=== PATIENT | male | born 1940 | race Caucasian/White ===

== ENCOUNTER → 2016-04-01 | Outpatient (CLI) | payer MEDICARE, OTHER ==
[2016-04-01 15:49] LABS: Albumin 4.1 g/dL (3.4-5.0); BUN/Creatinine Ratio 18.1; Bilirubin, Total 0.3 mg/dL (0.2-1.0); Calcium 9.1 mg/dL (8.5-10.1); Potassium 4.1 mmol/L (3.5-5.1); Total Protein 6.7 g/dL (6.4-8.2)
== END | disposition home or self-care (01) ==
LOC: LAB 10:10
PROVIDERS: ATTEND Internal Medicine Cardiovascular Disease
DX: I10 Essential (primary) hypertension (principal); R97.20 Elevated prostate specific antigen [PSA]
CPT/HCPCS: 36415; 80053; 84153

== ENCOUNTER → 2017-05-01 | Outpatient (CLI) | payer MEDICARE ==
[2017-05-01 12:15] LABS: Calcium 9.3 mg/dL (8.5-10.1); Potassium 3.9 mmol/L (3.5-5.1)
== END | disposition home or self-care (01) ==
LOC: LAB 09:16
PROVIDERS: ATTEND Internal Medicine Cardiovascular Disease
DX: C61 Malignant neoplasm of prostate (principal); I10 Essential (primary) hypertension
CPT/HCPCS: 36415; 80048; 84153

== ENCOUNTER → 2017-10-13 | Outpatient (CLI) | payer MEDICARE ==
[2017-10-13 12:07] LABS: Urine Blood Negative /uL (Negative); Urine Specific Gravity 1.018 (1.001-1.035)
== END | disposition home or self-care (01) ==
LOC: LAB 10:41
PROVIDERS: ATTEND Internal Medicine Cardiovascular Disease
DX: N39.0 Urinary tract infection, site not specified (principal)
CPT/HCPCS: 81003; 87086

== ENCOUNTER → 2018-09-23 | Outpatient (CLI) | payer MEDICARE ==
[2018-09-23 12:03] LABS: Urine Blood Negative /uL (Negative); Urine Specific Gravity 1.018 (1.001-1.035)
[2018-09-23 12:08] LABS: Basophils # (auto) 0.1 uL; Basophils % (auto) 1.7 % (0.0-2.0); Eosinophils # (auto) 0.2 uL; Eosinophils % (auto) 2.9 % (0.0-7.0); Hematocrit 45.8 % (41.0-53.0); Hemoglobin 15.3 g/dL (13.5-17.5); Lymphocytes # (auto) 1.1 uL; Lymphocytes % (auto) 17.3 % (10.0-50.0); Mean Corpuscular Hemoglobin 32.4 pg (28.0-32.0); Mean Corpuscular Hgb Conc. 33.5 g/dL (32.0-36.0); Mean Corpuscular Volume 96.9 fL (80.0-100.0); Monocytes # (auto) 0.7 uL; Neutrophils # (auto) 4.3 uL; Neutrophils % (auto) 67.1 % (37.0-80.0); Nucleated Red Blood Cells % 0.1 %; Platelet Count (auto) 220 10^3/uL (140-450); Red Blood Cells 4.73 10^6/uL (4.5-5.90); Red Cell Distribution Width 13.5 % (11.8-14.3); White Blood Cell 6.5 10^3/uL (4.4-10.8)
[2018-09-23 12:15] LABS: Albumin 3.9 g/dL (3.4-5.0); Potassium 4.2 mmol/L (3.5-5.1)
[2018-09-23 12:24] LABS: BUN/Creatinine Ratio 17.1; Bilirubin, Total 0.5 mg/dL (0.2-1.0)
[2018-09-23 12:25] LABS: Free T4 (Free Thyroxine) 1.18 ng/dL (0.89-1.76)
[2018-09-23 12:26] LABS: Prostate Specific Antigen 0.7 ng/mL (0.0-4.0)
== END | disposition home or self-care (01) ==
LOC: CHF HDHVI 08:03
PROVIDERS: ATTEND Internal Medicine Cardiovascular Disease
DX: E03.9 Hypothyroidism, unspecified (principal); C61 Malignant neoplasm of prostate; E29.1 Testicular hypofunction; K90.9 Intestinal malabsorption, unspecified; D51.9 Vitamin B12 deficiency anemia, unspecified; Z79.899 Other long term (current) drug therapy
CPT/HCPCS: 36415; 80053; 80061; 81003; 82306; 83036; 84153; 84403; 84439; 84443; 85025

== ENCOUNTER → 2018-11-24 | Outpatient (CLI) | payer MEDICARE ==
[2018-11-24 12:27] LABS: Urine Blood Negative /uL (Negative); Urine Specific Gravity 1.016 (1.001-1.035)
[2018-11-24 12:31] LABS: Basophils # (auto) 0.1 uL; Basophils % (auto) 1.5 % (0.0-2.0); Eosinophils # (auto) 0.5 uL; Eosinophils % (auto) 6.8 % (0.0-7.0); Hematocrit 43.6 % (41.0-53.0); Hemoglobin 14.8 g/dL (13.5-17.5); Lymphocytes # (auto) 1.6 uL; Mean Corpuscular Hemoglobin 32.9 pg (28.0-32.0); Mean Corpuscular Hgb Conc. 33.9 g/dL (32.0-36.0); Mean Corpuscular Volume 96.9 fL (80.0-100.0); Monocytes # (auto) 0.7 uL; Monocytes % (auto) 9.4 % (0.0-12.0); Neutrophils # (auto) 4.1 uL; Neutrophils % (auto) 59.3 % (37.0-80.0); Nucleated Red Blood Cells % 0.2 %; Platelet Count (auto) 233 10^3/uL (140-450); Red Cell Distribution Width 13.5 % (11.8-14.3); White Blood Cell 6.9 10^3/uL (4.4-10.8)
[2018-11-24 12:33] LABS: Albumin 3.8 g/dL (3.4-5.0)
[2018-11-24 12:37] LABS: Total Protein 7.2 g/dL (6.4-8.2)
[2018-11-24 12:38] LABS: Free T4 (Free Thyroxine) 1.27 ng/dL (0.89-1.76); Prostate Specific Antigen 0.21 ng/mL (0.0-4.0)
[2018-11-24 12:47] LABS: BUN/Creatinine Ratio 18.8; Bilirubin, Total 0.4 mg/dL (0.2-1.0); Calcium 8.8 mg/dL (8.5-10.1)
== END | disposition home or self-care (01) ==
LOC: LAB 08:52
PROVIDERS: ATTEND Internal Medicine
DX: E03.9 Hypothyroidism, unspecified (principal); K90.9 Intestinal malabsorption, unspecified; C61 Malignant neoplasm of prostate; E29.1 Testicular hypofunction; N39.0 Urinary tract infection, site not specified; D51.9 Vitamin B12 deficiency anemia, unspecified; Z79.899 Other long term (current) drug therapy
CPT/HCPCS: 36415; 80053; 80061; 81003; 82306; 82607; 83036; 84153; 84403; 84439; 84443; 85025

== ENCOUNTER → 2019-01-31 | Outpatient (CLI) | payer MEDICARE ==
[2019-01-31 10:56] VITALS: BP 149/76
[2019-01-31 11:09] VITALS: BP 153/76
--- NOTE | 2019-01-31 11:09 | NUR ---
[facility] Discharge Instructions See e-MAR for any mediations given with this visit. Patient education given on disease process. Patient verbalized understanding. Previous labs reviewed. Patient discharged in stable condition with after care instructions and follow up appointment. NOTE 4 RASHARD REMOVED, CLEANED WITH ANTISEPTIC SWAP. DRESSING CHANGED ON LEFT ARM SKIN TEAR.
== END | disposition home or self-care (01) ==
LOC: CHF HDHVI 11:05
PROVIDERS: ATTEND Internal Medicine Cardiovascular Disease
DX: S41.112A Laceration without foreign body of left upper arm, initial encounter (principal); S09.8XXA Other specified injuries of head, initial encounter; W19.XXXA Unspecified fall, initial encounter; Y93.89 Activity, other specified; Y92.89 Other specified places as the place of occurrence of the external cause; Y99.8 Other external cause status
CPT/HCPCS: G0463

== ENCOUNTER → 2019-03-01 | Outpatient (CLI) | payer MEDICARE | END | disposition home or self-care (01) | LOC: LAB 09:58 | PROVIDERS: ATTEND Internal Medicine | DX: E03.9 Hypothyroidism, unspecified (principal) | CPT/HCPCS: 36415; 84443 ==

== ENCOUNTER → 2019-03-30 | Outpatient (CLI) | payer MEDICARE | END | disposition home or self-care (01) | LOC: Rad HDHVI 12:50 | PROVIDERS: ATTEND Internal Medicine Cardiovascular Disease | DX: M79.89 Other specified soft tissue disorders (principal) | CPT/HCPCS: 93970 ==

== ENCOUNTER → 2019-04-08 | Outpatient (CLI) | payer MEDICARE | END | disposition home or self-care (01) | LOC: Rad HDHVI 14:47 | PROVIDERS: ATTEND Internal Medicine Cardiovascular Disease | DX: I07.1 Rheumatic tricuspid insufficiency (principal); R53.1 Weakness; I10 Essential (primary) hypertension; R07.9 Chest pain, unspecified | CPT/HCPCS: 93306 ==

== ENCOUNTER → 2019-04-20 | Outpatient (CLI) | payer MEDICARE ==
[~2019-04-20] VITALS: Ht 175.3 cm; Wt 79.8 kg
[~2019-04-20] MED LIST: ADENOSINE 67 MG in GIVE UN-DILUTED 0 ML IV ONE; ADENOSINE 90 MG/30 ML INJ IV ONE
[2019-04-20 12:17] LABS: Potassium 4.2 mmol/L (3.5-5.1)
[2019-04-20 12:21] LABS: Magnesium 2.6 mg/dL (1.6-2.6)
== END | disposition home or self-care (01) ==
LOC: Rad HDHVI 09:03
PROVIDERS: ATTEND Internal Medicine Cardiovascular Disease
DX: R00.2 Palpitations (principal); I10 Essential (primary) hypertension
CPT/HCPCS: 36415; 78452; 83735; 84132; 93005; 96374; 96375; A9500; J0153

== ENCOUNTER → 2019-06-28 | Outpatient (CLI) | payer MEDICARE, OTHER ==
[~2019-06-28] MED LIST changes: -ADENOSINE 67 MG in GIVE UN-DILUTED 0 ML IV ONE; -ADENOSINE 90 MG/30 ML INJ IV ONE; +IOHEXOL 350 MG/ML 100ML IJ ONE
--- NOTE | 2019-06-28 09:10 | NUR ---
PT. TO CLINIC FOR CTA OF LOWER EXT. PER DR. DURAN. WITH PT. DUE TO INSTABILITY WITH PT. USING WALKER. ORDERS RECEIVED AND CARRIED OUT.
[2019-06-28 09:15] VITALS: BP 156/75
--- NOTE | 2019-06-28 09:32 | NUR ---
IV insertion IV access obtained, via clean sterile technique by inserting 20 gauge catheter at after attempt(s). IV secured properly. No trauma to site. Patient tolerated procedure well. STAT LABS SENT PER MD ORDER.
--- NOTE | 2019-06-28 10:18 | NUR ---
IV removal IV DC'd with sterile technique, catheter fully intact. Pressure dressing applied to site. Patient tolerated procedure well.
[2019-06-28 10:38] LABS: Basophils # (auto) 0.1 10 ^3/uL (0-0.2); Basophils % (auto) 1.3 % (0.0-2.0); Eosinophils # (auto) 0.2 10 ^3/uL (0-0.8); Eosinophils % (auto) 4.7 % (0.0-7.0); Hematocrit 38.8 % (41.0-53.0); Hemoglobin 13.1 g/dL (13.5-17.5); Lymphocytes # (auto) 1.1 10 ^3/uL (0.4-5.4); Lymphocytes % (auto) 21.3 % (10.0-50.0); Mean Corpuscular Hemoglobin 31.7 pg (28.0-32.0); Mean Corpuscular Hgb Conc. 33.7 g/dL (32.0-36.0); Mean Corpuscular Volume 94.1 fL (80.0-100.0); Monocytes # (auto) 0.5 10 ^3/uL (0-1.3); Monocytes % (auto) 10.6 % (0.0-12.0); Neutrophils # (auto) 3.2 10 ^3/uL (1.6-8.6); Neutrophils % (auto) 62.1 % (37.0-80.0); Platelet Count (auto) 189 10^3/uL (140-450); Red Blood Cells 4.12 10^6/uL (4.5-5.90); Red Cell Distribution Width 13.4 % (11.8-14.3); White Blood Cell 5.1 10^3/uL (4.4-10.8)
[2019-06-28 10:46] LABS: Potassium 3.5 mmol/L (3.5-5.1)
[2019-06-28 10:50] LABS: BUN/Creatinine Ratio 16.9; Bilirubin, Total 0.4 mg/dL (0.2-1.0); Total Protein 7.3 g/dL (6.4-8.2)
--- NOTE | 2019-06-28 10:50 | NUR ---
STAT CREAT RESULTS 0.83
[2019-06-28 11:20] VITALS: BP 137/77
--- NOTE | 2019-06-28 11:20 | NUR ---
Discharge Instructions See e-MAR for any mediations given with this visit. Patient education given on disease process. Patient verbalized understanding. Previous labs reviewed. Patient discharged in stable condition with after care instructions and follow up appointment. NOTE PATIENT EDUCATED TO DRINK PLENTY OF FLUID FOLLOWING IV CONTRAST, PATIENT VERBALIZED UNDERSTANDING. EKG (PATIENT IN BIGEMINY) COMPLETED AND PLACED IN PATIENT CHART.
== END | disposition home or self-care (01) ==
LOC: Rad HDHVI 09:03
PROVIDERS: ATTEND Internal Medicine Cardiovascular Disease
DX: K40.20 Bilateral inguinal hernia, without obstruction or gangrene, not specified as recurrent (principal); K76.89 Other specified diseases of liver; I77.4 Celiac artery compression syndrome; D64.9 Anemia, unspecified; C61 Malignant neoplasm of prostate; I10 Essential (primary) hypertension; I73.9 Peripheral vascular disease, unspecified; M54.9 Dorsalgia, unspecified
CPT/HCPCS: 36415; 75635; 80053; 83735; 84153; 85025; 93005; G0463; Q9967

== ENCOUNTER → 2019-09-20 | Outpatient (CLI) | payer MEDICARE, OTHER | END | disposition home or self-care (01) | LOC: Rad HDHVI 09:25 | PROVIDERS: ATTEND Internal Medicine | DX: S22.31XA Fracture of one rib, right side, initial encounter for closed fracture (principal); I70.0 Atherosclerosis of aorta; J18.9 Pneumonia, unspecified organism; J90 Pleural effusion, not elsewhere classified; J93.9 Pneumothorax, unspecified; M47.814 Spondylosis without myelopathy or radiculopathy, thoracic region; M41.84 Other forms of scoliosis, thoracic region; M46.04 Spinal enthesopathy, thoracic region; M51.34 Other intervertebral disc degeneration, thoracic region; M85.88 Other specified disorders of bone density and structure, other site; M47.817 Spondylosis without myelopathy or radiculopathy, lumbosacral region; M46.06 Spinal enthesopathy, lumbar region; M51.37 Other intervertebral disc degeneration, lumbosacral region; W19.XXXA Unspecified fall, initial encounter; Y93.89 Activity, other specified; Y92.89 Other specified places as the place of occurrence of the external cause; Y99.8 Other external cause status; Z87.81 Personal history of (healed) traumatic fracture | CPT/HCPCS: 71100; 72070; 72100 ==

== ENCOUNTER → 2020-01-27 | Outpatient (CLI) | payer MEDICARE, OTHER | END | disposition home or self-care (01) | LOC: LAB 08:13 | PROVIDERS: ATTEND Internal Medicine | DX: C61 Malignant neoplasm of prostate (principal) | CPT/HCPCS: 84153 ==

== ENCOUNTER → 2020-06-29 | Outpatient (CLI) | payer MEDICARE, OTHER ==
[2020-06-29 12:48] LABS: Urine Blood Negative /uL (Negative); Urine Specific Gravity 1.012 (1.001-1.035)
[2020-06-29 12:54] LABS: Basophils # (auto) 0.1 10 ^3/uL (0-0.2); Basophils % (auto) 1.7 % (0.0-2.0); Eosinophils # (auto) 0.3 10 ^3/uL (0-0.8); Eosinophils % (auto) 5.5 % (0.0-7.0); Hematocrit 43.2 % (41.0-53.0); Hemoglobin 14.6 g/dL (13.5-17.5); Lymphocytes # (auto) 1.3 10 ^3/uL (0.4-5.4); Lymphocytes % (auto) 28.3 % (10.0-50.0); Mean Corpuscular Hemoglobin 31.7 pg (28.0-32.0); Mean Corpuscular Hgb Conc. 33.8 g/dL (32.0-36.0); Mean Corpuscular Volume 93.9 fL (80.0-100.0); Monocytes # (auto) 0.6 10 ^3/uL (0-1.3); Neutrophils # (auto) 2.4 10 ^3/uL (1.6-8.6); Neutrophils % (auto) 52.5 % (37.0-80.0); Nucleated Red Blood Cells % 0.1 %; Platelet Count (auto) 205 10^3/uL (140-450); Red Cell Distribution Width 13.2 % (11.8-14.3); White Blood Cell 4.6 10^3/uL (4.4-10.8)
[2020-06-29 12:57] LABS: Potassium 4.4 mmol/L (3.5-5.1)
[2020-06-29 13:01] LABS: Free T4 (Free Thyroxine) 1.1 ng/dL (0.89-1.76); Prostate Specific Antigen 0.01 ng/mL (0.0-4.0)
[2020-06-29 13:13] LABS: Albumin 4.3 g/dL (3.4-5.0); BUN/Creatinine Ratio 19.8; Bilirubin, Total 0.5 mg/dL (0.2-1.0); Calcium 9.1 mg/dL (8.5-10.1); Total Protein 7.5 g/dL (6.4-8.2)
== END | disposition home or self-care (01) ==
LOC: LAB 08:15
PROVIDERS: ATTEND Internal Medicine Cardiovascular Disease
DX: C61 Malignant neoplasm of prostate (principal); D51.3 Other dietary vitamin B12 deficiency anemia; I10 Essential (primary) hypertension; E11.9 Type 2 diabetes mellitus without complications; D64.9 Anemia, unspecified; E55.9 Vitamin D deficiency, unspecified; R00.2 Palpitations; R53.1 Weakness; R30.0 Dysuria
CPT/HCPCS: 36415; 80053; 80061; 81003; 82306; 82607; 83036; 84153; 84403; 84439; 84443; 85025

== ENCOUNTER → 2021-02-12 | Outpatient (CLI) | payer MEDICARE, OTHER ==
[2021-02-12 15:15] LABS: Basophils # (auto) 0.1 10 ^3/uL (0-0.2); Basophils % (auto) 1.3 % (0.0-2.0); Eosinophils # (auto) 0.2 10 ^3/uL (0-0.8); Eosinophils % (auto) 4.2 % (0.0-7.0); Hemoglobin 14.1 g/dL (13.5-17.5); Lymphocytes # (auto) 1.3 10 ^3/uL (0.4-5.4); Lymphocytes % (auto) 23.4 % (10.0-50.0); Mean Corpuscular Hemoglobin 31.5 pg (28.0-32.0); Mean Corpuscular Hgb Conc. 33.5 g/dL (32.0-36.0); Mean Corpuscular Volume 94.1 fL (80.0-100.0); Monocytes # (auto) 0.7 10 ^3/uL (0-1.3); Neutrophils # (auto) 3.1 10 ^3/uL (1.6-8.6); Neutrophils % (auto) 58.1 % (37.0-80.0); Red Blood Cells 4.46 10^6/uL (4.5-5.90); White Blood Cell 5.4 10^3/uL (4.4-10.8)
[2021-02-12 15:16] LABS: Urine Blood Negative /uL (Negative); Urine Specific Gravity 1.021 (1.001-1.035)
[2021-02-12 15:22] LABS: Calcium 9.4 mg/dL (8.5-10.1); Potassium 4.4 mmol/L (3.5-5.1)
[2021-02-12 15:26] LABS: BUN/Creatinine Ratio 21.2; Bilirubin, Total 0.2 mg/dL (0.2-1.0); Total Protein 7.1 g/dL (6.4-8.2)
[2021-02-12 15:30] LABS: Free T4 (Free Thyroxine) 1.28 ng/dL (0.89-1.76); Prostate Specific Antigen 0.01 ng/mL (0.0-4.0)
== END | disposition home or self-care (01) ==
LOC: LAB 11:10
PROVIDERS: ATTEND Internal Medicine
DX: C61 Malignant neoplasm of prostate (principal); D51.3 Other dietary vitamin B12 deficiency anemia; E55.9 Vitamin D deficiency, unspecified; E11.9 Type 2 diabetes mellitus without complications; R53.1 Weakness; D64.9 Anemia, unspecified; I10 Essential (primary) hypertension; R00.2 Palpitations; R30.0 Dysuria
CPT/HCPCS: 36415; 80053; 80061; 81003; 82607; 83036; 84153; 84403; 84439; 84443; 85025

== ENCOUNTER → 2021-04-09 | Outpatient (CLI) | payer MEDICARE, OTHER ==
[2021-04-09 15:23] LABS: Basophils # (auto) 0.1 10 ^3/uL (0-0.2); Basophils % (auto) 1.2 % (0.0-2.0); Eosinophils # (auto) 0.2 10 ^3/uL (0-0.8); Eosinophils % (auto) 3.9 % (0.0-7.0); Hematocrit 41.5 % (41.0-53.0); Hemoglobin 14.2 g/dL (13.5-17.5); Lymphocytes # (auto) 1.2 10 ^3/uL (0.4-5.4); Lymphocytes % (auto) 20.8 % (10.0-50.0); Mean Corpuscular Hemoglobin 31.6 pg (28.0-32.0); Mean Corpuscular Hgb Conc. 34.1 g/dL (32.0-36.0); Mean Corpuscular Volume 92.6 fL (80.0-100.0); Monocytes # (auto) 0.7 10 ^3/uL (0-1.3); Monocytes % (auto) 12.8 % (0.0-12.0); Neutrophils # (auto) 3.5 10 ^3/uL (1.6-8.6); Neutrophils % (auto) 61.3 % (37.0-80.0); Nucleated Red Blood Cells % 0.1 %; Red Blood Cells 4.48 10^6/uL (4.5-5.90); Red Cell Distribution Width 12.8 % (11.8-14.3); White Blood Cell 5.8 10^3/uL (4.4-10.8)
[2021-04-09 15:30] LABS: Albumin 3.9 g/dL (3.4-5.0); Calcium 9.1 mg/dL (8.5-10.1); Potassium 4.2 mmol/L (3.5-5.1)
[2021-04-09 15:34] LABS: BUN/Creatinine Ratio 29.7; Bilirubin, Total 0.3 mg/dL (0.2-1.0); Total Protein 7.2 g/dL (6.4-8.2)
== END | disposition home or self-care (01) ==
LOC: LAB 10:59
PROVIDERS: ATTEND Internal Medicine
DX: R74.8 Abnormal levels of other serum enzymes (principal)
CPT/HCPCS: 36415; 80053; 82550; 85025

== ENCOUNTER 2021-04-17 00:48 | Inpatient (IN) | payer MEDICARE, OTHER ==
[~2021-04-17] VITALS: Ht 172.7 cm; Wt 78.1 kg
[2021-04-17] VITALS (8 sets, daily range): BP systolic 116–165; BP diastolic 62–108
[2021-04-17 02:07] LABS: Albumin 3.5 g/dL (3.4-5.0); Calcium 8.6 mg/dL (8.5-10.1); Potassium 3.9 mmol/L (3.5-5.1)
[2021-04-17 02:13] LABS: Bilirubin, Total 0.2 mg/dL (0.2-1.0); Total Protein 6.3 g/dL (6.4-8.2)
[2021-04-17 02:28] LABS: Basophils # (auto) 0.1 10 ^3/uL (0-0.2); Basophils % (auto) 1.4 % (0.0-2.0); Eosinophils # (auto) 0.2 10 ^3/uL (0-0.8); Eosinophils % (auto) 4.4 % (0.0-7.0); Hematocrit 38.1 % (41.0-53.0); Lymphocytes # (auto) 1.5 10 ^3/uL (0.4-5.4); Mean Corpuscular Hemoglobin 31.4 pg (28.0-32.0); Mean Corpuscular Hgb Conc. 34.1 g/dL (32.0-36.0); Mean Corpuscular Volume 92.1 fL (80.0-100.0); Monocytes # (auto) 0.5 10 ^3/uL (0-1.3); Monocytes % (auto) 9.3 % (0.0-12.0); Neutrophils # (auto) 3.1 10 ^3/uL (1.6-8.6); Neutrophils % (auto) 57.9 % (37.0-80.0); Red Blood Cells 4.13 10^6/uL (4.5-5.90); White Blood Cell 5.4 10^3/uL (4.4-10.8)
[2021-04-17] MEDS ORDERED: ENOXAPARIN SOD 80 MG/0.8ML SYRINGE SC ONE (06:30)
[2021-04-17] MEDS ORDERED: MORPHINE SULFATE INJECTION 2 MG/ML SYRG IV PRN (06:30)
[2021-04-17] MEDS ORDERED: ASPirin 81 mg TAB PO ONE (06:30)
[2021-04-17] MEDS ORDERED: CLOPIDOGREL 300 MG TAB PO ONE (06:30)
[2021-04-17] MEDS ORDERED: ACETAMINOPHEN 325 MG TAB PO PRN (06:30)
[2021-04-17] MEDS ORDERED: MORPHINE SULFATE 4 MG/ML SYR/VIAL IV PRN (06:30)
[2021-04-17] MEDS: SODIUM CHLORIDE 0.9% 1,000 ML IV SCH ×2 (06:30→20:14)
[2021-04-17] MEDS ORDERED: ONDANSETRON HCL 4 MG/2 ML VIAL IV PRN (06:30)
[2021-04-17] MEDS ORDERED: ALUM & MAG HYDROX-SIMETH LIQ(MAALOX) 30 ML PO ONE (06:30)
[2021-04-17] MEDS ORDERED: NITROGLYCERIN 0.4 MG SL TAB SL PRN ×2 (06:30)
[2021-04-17] MEDS ORDERED: IMIP25TA2 PO ×2 (07:08→10:01)
[2021-04-17] MEDS ORDERED: TAMS1CAP25 PO ×2 (07:08→10:01)
[2021-04-17] MEDS ORDERED: VALS1TAB58 PO (07:08)
[2021-04-17 07:26] LABS: Calcium 9.1 mg/dL (8.5-10.1); Magnesium 2.6 mg/dL (1.6-2.6); Potassium 4.3 mmol/L (3.5-5.1)
[2021-04-17 07:29] LABS: BUN/Creatinine Ratio 20.3
[2021-04-17] MEDS: METOPROLOL TARTRATE 25 MG TAB PO SCH ×3 (07:48→22:04)
[2021-04-17 08:27] LABS: Basophils # (auto) 0.1 10 ^3/uL (0-0.2); Basophils % (auto) 2.2 % (0.0-2.0); Eosinophils # (auto) 0.2 10 ^3/uL (0-0.8); Hematocrit 38.6 % (41.0-53.0); Hemoglobin 13.3 g/dL (13.5-17.5); Lymphocytes # (auto) 1.3 10 ^3/uL (0.4-5.4); Lymphocytes % (auto) 19.7 % (10.0-50.0); Mean Corpuscular Hemoglobin 31.6 pg (28.0-32.0); Mean Corpuscular Hgb Conc. 34.5 g/dL (32.0-36.0); Mean Corpuscular Volume 91.4 fL (80.0-100.0); Monocytes # (auto) 0.6 10 ^3/uL (0-1.3); Monocytes % (auto) 9.9 % (0.0-12.0); Neutrophils # (auto) 4.2 10 ^3/uL (1.6-8.6); Neutrophils % (auto) 65.2 % (37.0-80.0); Nucleated Red Blood Cells % 0.1 %; Red Blood Cells 4.22 10^6/uL (4.5-5.90); Red Cell Distribution Width 12.6 % (11.8-14.3); White Blood Cell 6.4 10^3/uL (4.4-10.8)
[2021-04-17] MEDS ORDERED: IMIPRAMINE HCL 25 MG TAB PO SCH (10:00)
[2021-04-17] MEDS ORDERED: LISINOPRIL 10 MG TAB PO SCH (10:00)
[2021-04-17 11:17] LABS: INR 1.04 (0.9-1.15); Partial Thromboplastin Time 27.9 sec (23.6-33.0)
[2021-04-17] MEDS ORDERED: LIDOCAINE 2%HCL (LOCAL ANESTH.) INJ 20ML MDV ONE (12:37)
[2021-04-17] MEDS ORDERED: IODIXANOL 320MG/ML 100ML BTL IV ONE ×3 (12:38→14:04)
[2021-04-17] MEDS ORDERED: HEPARIN IN NS 1000Units/500mL 1,500 ML ONE (12:38)
[2021-04-17] MEDS ORDERED: VERAPAMIL 2.5MG/ML INJ 2ML VIAL IV ONE (12:46)
[2021-04-17] MEDS ORDERED: HEPARIN SODIUM (PORCINE) 5000 UNITS/ML 1ML VIAL ONE (12:46)
[2021-04-17] MEDS ORDERED: fentaNYL CITRATE 100 MCG/2 ML VL ONE (12:46)
[2021-04-17] MEDS ORDERED: MIDAZOLAM HCL 2MG/2ML 2ml VIAL (1mg/ml) ONE (12:46)
[2021-04-17] MEDS ORDERED: ANGIOMAX 250 MG VIAL IV ONE ×2 (12:47→14:03)
[2021-04-17] MEDS ORDERED: SODIUM CHL 0.9% 0 ML ONE (12:47)
[2021-04-17] MEDS ORDERED: ONDANSETRON HCL 4 MG/2 ML VIAL ONE (12:53)
[2021-04-17] MEDS ORDERED: SODIUM CHL 0.9% 50 ML ONE (14:03)
[2021-04-17] MEDS: TAMSULOSIN HYDROCHLORIDE 0.4 MG CAP PO SCH (16:00)
[2021-04-17] MEDS: DOCUSATE SOD 100 MG CAP PO SCH (16:00)
[2021-04-17] MEDS: VALSARTAN 80 MG TAB PO SCH (16:00)
[2021-04-17] MEDS: FAMOTIDINE 20 MG TAB PO SCH (16:00)
[2021-04-17] MEDS ORDERED: ATORVASTATIN 20 MG TAB PO SCH (22:00)
[2021-04-17] MEDS: ENOXAPARIN SOD 80 MG/0.8ML SYRINGE SC SCH (22:04)
[2021-04-18 05:50] LABS: Basophils # (auto) 0.1 10 ^3/uL (0-0.2); Eosinophils # (auto) 0.1 10 ^3/uL (0-0.8); Eosinophils % (auto) 1.3 % (0.0-7.0); Hemoglobin 13.4 g/dL (13.5-17.5); Lymphocytes # (auto) 1.1 10 ^3/uL (0.4-5.4); Lymphocytes % (auto) 13.3 % (10.0-50.0); Mean Corpuscular Hemoglobin 31.9 pg (28.0-32.0); Mean Corpuscular Hgb Conc. 35.2 g/dL (32.0-36.0); Mean Corpuscular Volume 90.7 fL (80.0-100.0); Monocytes # (auto) 0.8 10 ^3/uL (0-1.3); Monocytes % (auto) 9.5 % (0.0-12.0); Neutrophils # (auto) 6.4 10 ^3/uL (1.6-8.6); Neutrophils % (auto) 74.9 % (37.0-80.0); Red Blood Cells 4.19 10^6/uL (4.5-5.90); White Blood Cell 8.6 10^3/uL (4.4-10.8)
[2021-04-18 06:00] LABS: INR 1.07 (0.9-1.15); Partial Thromboplastin Time 26.3 sec (23.6-33.0)
[2021-04-18 06:11] VITALS: BP 105/59
[2021-04-18 06:13] LABS: Calcium 8.8 mg/dL (8.5-10.1); Magnesium 2.4 mg/dL (1.6-2.6)
[2021-04-18 06:17] LABS: BUN/Creatinine Ratio 20.5
[2021-04-18 08:42] VITALS: BP 108/56
[2021-04-18] MEDS: SODIUM CHLORIDE 0.9% 1,000 ML IV SCH (09:20)
[2021-04-18] MEDS: VALSARTAN 80 MG TAB PO SCH (09:31)
[2021-04-18] MEDS: METOPROLOL TARTRATE 25 MG TAB PO SCH (09:32)
[2021-04-18] MEDS: TAMSULOSIN HYDROCHLORIDE 0.4 MG CAP PO SCH (09:32)
[2021-04-18] MEDS: DOCUSATE SOD 100 MG CAP PO SCH (09:33)
[2021-04-18] MEDS: FAMOTIDINE 20 MG TAB PO SCH (09:33)
[2021-04-18] MEDS: IMIPRAMINE HCL PO SCH ×3 (09:34→09:38)
[2021-04-18] MEDS: ENOXAPARIN SOD 80 MG/0.8ML SYRINGE SC SCH (09:34)
[2021-04-18] MEDS ORDERED: ASPirin 81 mg TAB PO SCH (10:00)
[2021-04-18] MEDS ORDERED: CLOPIDOGREL BISULFATE 75 MG TAB PO SCH (10:00)
[2021-04-18] MEDS ORDERED: ATO40T PO (10:25)
[2021-04-18] MEDS ORDERED: CLOP75TA28 PO (10:25)
[2021-04-18] MEDS ORDERED: ASPI-498 OR (10:25)
[2021-04-18] MEDS ORDERED: METO25TA5 PO (10:25)
== END 2021-04-18 11:30 | disposition home or self-care (01) | DRG 246 ==
LOC: ER 00:52 → TELE 06:33 → TELE-WESTW 09:10
PROVIDERS: ADMIT Internal Medicine; ATTEND Family Medicine
PROC: 027135Z Dilation of Coronary Artery, Two Arteries with Two Drug-eluting Intraluminal Devices, Percutaneous Approach (ICD-10-PCS; principal; 2021-04-17)
PROC: 4A023N7 Measurement of Cardiac Sampling and Pressure, Left Heart, Percutaneous Approach (ICD-10-PCS; 2021-04-17)
PROC: B211YZZ Fluoroscopy of Multiple Coronary Arteries using Other Contrast (ICD-10-PCS; 2021-04-17)
PROC: B215YZZ Fluoroscopy of Left Heart using Other Contrast (ICD-10-PCS; 2021-04-17)
PROC: 4A033BC Measurement of Arterial Pressure, Coronary, Percutaneous Approach (ICD-10-PCS; 2021-04-17)
PROC: B240ZZ3 Ultrasonography of Single Coronary Artery, Intravascular (ICD-10-PCS; 2021-04-17)
DX: I21.4 Non-ST elevation (NSTEMI) myocardial infarction (principal); I50.21 Acute systolic (congestive) heart failure; N40.0 Benign prostatic hyperplasia without lower urinary tract symptoms; K21.9 Gastro-esophageal reflux disease without esophagitis; E78.00 Pure hypercholesterolemia, unspecified; I10 Essential (primary) hypertension; I25.10 Atherosclerotic heart disease of native coronary artery without angina pectoris; Z20.822 Contact with and (suspected) exposure to COVID-19; E78.5 Hyperlipidemia, unspecified; Z79.01 Long term (current) use of anticoagulants; Z86.718 Personal history of other venous thrombosis and embolism
CPT/HCPCS: 36415; 71045; 80048; 80053; 80061; 83735; 83880; 84484; 85025; 85610; 85730; 86850; 86900; 86901; 92928; 92978; 93005; 93306; 93458; 93571; 96360; 96372; 99152; 99153; C1874; C1887; G0378; J2250; J2405; Q9967

== ENCOUNTER 2021-11-05 12:37 | Inpatient (IN) | payer MEDICARE, OTHER ==
[~2021-11-05] VITALS: Ht 172.7 cm; Wt 77.9 kg
[~2021-11-05 12:37] MED LIST changes: +ASPI-498 OR; +ATO40T PO; +CLOP75TA28 PO; +IMIP25TA2 PO; -IOHEXOL 350 MG/ML 100ML IJ ONE; +METO25TA5 PO; +TAMS1CAP25 PO; +VALS1TAB58 PO
[2021-11-05 13:16] LABS: Basophils # (auto) 0.1 10 ^3/uL (0-0.2); Basophils % (auto) 1.2 % (0.0-2.0); Eosinophils # (auto) 0.2 10 ^3/uL (0-0.8); Eosinophils % (auto) 3.5 % (0.0-7.0); Hematocrit 38.9 % (41.0-53.0); Hemoglobin 13.1 g/dL (13.5-17.5); Lymphocytes # (auto) 1.5 10 ^3/uL (0.4-5.4); Lymphocytes % (auto) 22.3 % (10.0-50.0); Mean Corpuscular Hgb Conc. 33.5 g/dL (32.0-36.0); Mean Corpuscular Volume 92.4 fL (80.0-100.0); Monocytes # (auto) 0.8 10 ^3/uL (0-1.3); Monocytes % (auto) 12.6 % (0.0-12.0); Neutrophils % (auto) 60.4 % (37.0-80.0); Red Blood Cells 4.21 10^6/uL (4.5-5.90); White Blood Cell 6.7 10^3/uL (4.4-10.8)
[2021-11-05 14:02] LABS: Albumin 3.9 g/dL (3.4-5.0); BUN/Creatinine Ratio 27.9; Calcium 8.7 mg/dL (8.5-10.1); Potassium 4.2 mmol/L (3.5-5.1)
[2021-11-05 14:04] LABS: Bilirubin, Total 0.3 mg/dL (0.2-1.0); Total Protein 6.5 g/dL (6.4-8.2)
[2021-11-05] MEDS ORDERED: NITROGLYCERIN 0.4 MG SL TAB SL ONE (14:30)
[2021-11-05] MEDS ORDERED: ONDANSETRON HCL 4 MG/2 ML VIAL IV PRN (16:00)
[2021-11-05] MEDS ORDERED: NITROGLYCERIN 0.4 MG SL TAB SL PRN (16:00)
[2021-11-05] MEDS ORDERED: MORPHINE SULFATE INJ 2 MG/ml SYRG IV PRN (16:00)
[2021-11-05 16:30] LABS: Cholesterol 100 mg/dL (< 200); Triglycerides 83 mg/dL (< 150)
[2021-11-05 16:32] LABS: HDL Cholesterol 45 mg/dL (40-59); LDL Cholesterol 51 mg/dL (< 100)
[2021-11-05 16:43] LABS: INR 0.99 (0.9-1.15)
[2021-11-05] MEDS: IMIPRAMINE HCL PO SCH (22:00)
[2021-11-05] MEDS ORDERED: ATORVASTATIN 20 MG TAB PO SCH (22:00)
[2021-11-05] MEDS: TAMSULOSIN HYDROCHLORIDE 0.4 MG CAP PO SCH (22:57)
[2021-11-05] MEDS: ATORVASTATIN 20 MG TAB PO SCH (22:58)
[2021-11-05] MEDS: METOPROLOL TARTRATE 25 MG TAB PO SCH (22:59)
[2021-11-05] MEDS: HEPARIN SODIUM (PORCINE) 5000 UNITS/ML 1ML VIAL SC SCH (23:00)
[2021-11-06] VITALS (7 sets, daily range): BP systolic 119–150; BP diastolic 64–83
[2021-11-06 07:08] LABS: Basophils # (auto) 0.1 10 ^3/uL (0-0.2); Eosinophils # (auto) 0.2 10 ^3/uL (0-0.8); Eosinophils % (auto) 2.8 % (0.0-7.0); Hematocrit 38.4 % (41.0-53.0); Hemoglobin 13.1 g/dL (13.5-17.5); Lymphocytes # (auto) 1.2 10 ^3/uL (0.4-5.4); Lymphocytes % (auto) 19.2 % (10.0-50.0); Mean Corpuscular Hemoglobin 31.3 pg (28.0-32.0); Mean Corpuscular Hgb Conc. 34.2 g/dL (32.0-36.0); Mean Corpuscular Volume 91.4 fL (80.0-100.0); Monocytes # (auto) 0.6 10 ^3/uL (0-1.3); Monocytes % (auto) 9.7 % (0.0-12.0); Neutrophils # (auto) 4.3 10 ^3/uL (1.6-8.6); Neutrophils % (auto) 67.3 % (37.0-80.0); Nucleated Red Blood Cells % 0.2 %; Red Cell Distribution Width 12.7 % (11.8-14.3); White Blood Cell 6.3 10^3/uL (4.4-10.8)
[2021-11-06 07:11] LABS: Potassium 3.9 mmol/L (3.5-5.1)
[2021-11-06 07:20] LABS: Albumin 3.6 g/dL (3.4-5.0); BUN/Creatinine Ratio 22.4; Bilirubin, Total 0.3 mg/dL (0.2-1.0); Calcium 8.6 mg/dL (8.5-10.1); Total Protein 6.7 g/dL (6.4-8.2)
[2021-11-06] MEDS ORDERED: VALSARTAN 80 MG TAB PO SCH (10:00)
[2021-11-06] MEDS: TAMSULOSIN HYDROCHLORIDE 0.4 MG CAP PO SCH ×2 (10:05→21:31)
[2021-11-06] MEDS: METOPROLOL TARTRATE 25 MG TAB PO SCH ×2 (10:06→21:31)
[2021-11-06] MEDS: ASPirin-EC 81 mg tab PO SCH (10:06)
[2021-11-06] MEDS: HEPARIN SODIUM (PORCINE) 5000 UNITS/ML 1ML VIAL SC SCH (10:08)
[2021-11-06] MEDS: D5W/SOD CHLO 0.9% 1,000 ML IV SCH (12:07)
[2021-11-06] MEDS ORDERED: POLYETHYLENE GLYCOL 17 GM PWDR PO ONE (14:30)
[2021-11-06] MEDS ORDERED: PANTOPRAZOLE 40 MG/10 ML VIAL INJ IV ONE (14:30)
[2021-11-06 17:08] LABS: Urine Amorphous Crystal FEW /hpf (None Seen); Urine Bacteria NONE SEEN /hpf (None Seen); Urine Blood Negative /uL (Negative); Urine Budding Yeast FEW /hpf (None Seen); Urine Specific Gravity 1.018 (1.001-1.035); Urine WBC 13 /hpf (0 - 3)
[2021-11-06] MEDS ORDERED: VERAPAMIL 2.5MG/ML INJ 2ML VIAL IV ONE (19:15)
[2021-11-06] MEDS ORDERED: ANGIOMAX 250 MG VIAL IV ONE (19:15)
[2021-11-06] MEDS ORDERED: HEPARIN SODIUM (PORCINE) 5000 UNITS/ML 1ML VIAL ONE (19:15)
[2021-11-06] MEDS ORDERED: LIDOCAINE 2%HCL (LOCAL ANESTH.) INJ 20ML MDV ONE (19:16)
[2021-11-06] MEDS ORDERED: IOHEXOL 350 MG/ML 100ML IJ ONE (19:16)
[2021-11-06] MEDS ORDERED: MIDAZOLAM HCL 2MG/2ML 2ml VIAL (1mg/ml) ONE (19:16)
[2021-11-06] MEDS ORDERED: SODIUM CHL 0.9% 0 ML ONE (19:16)
[2021-11-06] MEDS ORDERED: fentaNYL CITRATE 100 MCG/2 ML VL ONE (19:16)
[2021-11-06] MEDS: ATORVASTATIN 20 MG TAB PO SCH (21:31)
[2021-11-06] MEDS: IMIPRAMINE HCL PO SCH (21:35)
[2021-11-07] MEDS: D5W/SOD CHLO 0.9% 1,000 ML IV SCH (02:08)
[2021-11-07 05:00] VITALS: BP 102/50
[2021-11-07 09:00] VITALS: BP 123/63
[2021-11-07] MEDS: ASPirin-EC 81 mg tab PO SCH (09:51)
[2021-11-07] MEDS: TAMSULOSIN HYDROCHLORIDE 0.4 MG CAP PO SCH (09:52)
[2021-11-07] MEDS: METOPROLOL TARTRATE 25 MG TAB PO SCH (09:52)
[2021-11-07] MEDS ORDERED: CLOPIDOGREL BISULFATE 75 MG TAB PO SCH (10:00)
[2021-11-07] MEDS ORDERED: VALSARTAN 80 MG TAB PO SCH (10:00)
[2021-11-07] MEDS ORDERED: PANTOPRAZOLE 40 MG/10 ML VIAL INJ IV SCH (10:00)
[2021-11-07] MEDS ORDERED: PANT40TA2 PO (12:28)
[2021-11-07 14:00] VITALS: BP 117/59
[2021-11-07 15:49] VITALS: BP 117/62
[2021-11-07] MEDS ORDERED: PANTOPRAZOLE 40 MG TAB PO SCH (22:00)
== END 2021-11-07 16:25 | disposition home or self-care (01) | DRG 287 ==
LOC: EDBD 12:37 → ER 12:37 → TELE 15:59 → TELE-WESTW 11-06 01:10
PROVIDERS: ADMIT Registered Nurse; ATTEND Internal Medicine
PROC: 4A023N7 Measurement of Cardiac Sampling and Pressure, Left Heart, Percutaneous Approach (ICD-10-PCS; principal; 2021-11-06)
PROC: B2111ZZ Fluoroscopy of Multiple Coronary Arteries using Low Osmolar Contrast (ICD-10-PCS; 2021-11-06)
PROC: B2151ZZ Fluoroscopy of Left Heart using Low Osmolar Contrast (ICD-10-PCS; 2021-11-06)
DX: I25.10 Atherosclerotic heart disease of native coronary artery without angina pectoris (principal); I50.22 Chronic systolic (congestive) heart failure; E78.5 Hyperlipidemia, unspecified; I11.0 Hypertensive heart disease with heart failure; Z20.822 Contact with and (suspected) exposure to COVID-19; K21.9 Gastro-esophageal reflux disease without esophagitis; N40.0 Benign prostatic hyperplasia without lower urinary tract symptoms; Z79.899 Other long term (current) drug therapy; Z82.5 Family history of asthma and other chronic lower respiratory diseases; Z83.3 Family history of diabetes mellitus; G31.9 Degenerative disease of nervous system, unspecified
CPT/HCPCS: 36415; 71045; 80053; 80061; 81001; 83880; 84484; 85025; 85610; 93005; 93306; 93458; 99152; C9113; G0378; J2250; J2405; J7042

== ENCOUNTER → 2021-12-09 | Outpatient (CLI) | payer MEDICARE ==
[~2021-12-09] MED LIST changes: +PANT40TA2 PO
== END | disposition home or self-care (01) ==
LOC: LAB 11:48
PROVIDERS: ATTEND Internal Medicine Pulmonary Disease
DX: Z01.812 Encounter for preprocedural laboratory examination (principal); Z20.822 Contact with and (suspected) exposure to COVID-19
CPT/HCPCS: 36415; 87426

== ENCOUNTER → 2022-11-26 | Outpatient (CLI) | payer MEDICARE, OTHER ==
[~2022-11-26] VITALS: Ht 175.3 cm; Wt 77.1 kg
[~2022-11-26] MED LIST changes: +ADENOSINE 65 MG in GIVE UN-DILUTED 0 ML IV ONE; +ADENOSINE 90 MG/30 ML INJ IV ONE; -IMIP25TA2 PO; +[UNRECOGNIZED DRUG - CODE] PO
== END | disposition home or self-care (01) ==
LOC: Rad HDHVI 13:21
PROVIDERS: ATTEND Internal Medicine Cardiovascular Disease
DX: I25.10 Atherosclerotic heart disease of native coronary artery without angina pectoris (principal); R06.02 Shortness of breath; I10 Essential (primary) hypertension; E78.5 Hyperlipidemia, unspecified; Z95.5 Presence of coronary angioplasty implant and graft
CPT/HCPCS: 78452; 93005; 96374; 96375; A9500; J0153

== ENCOUNTER → 2022-12-02 | Outpatient (CLI) | payer MEDICARE, OTHER ==
[~2022-12-02] MED LIST changes: -ADENOSINE 65 MG in GIVE UN-DILUTED 0 ML IV ONE; -ADENOSINE 90 MG/30 ML INJ IV ONE
== END | disposition home or self-care (01) ==
LOC: Rad HDHVI 09:01
PROVIDERS: ATTEND Internal Medicine Cardiovascular Disease
DX: I08.0 Rheumatic disorders of both mitral and aortic valves (principal); I48.91 Unspecified atrial fibrillation; I10 Essential (primary) hypertension; R06.02 Shortness of breath
CPT/HCPCS: 93306

== ENCOUNTER → 2022-12-15 | Outpatient (CLI) | payer MEDICARE, OTHER | END | disposition home or self-care (01) | LOC: Rad HDHVI 12:59 | PROVIDERS: ATTEND Internal Medicine Cardiovascular Disease | DX: I65.23 Occlusion and stenosis of bilateral carotid arteries (principal); I10 Essential (primary) hypertension | CPT/HCPCS: 93880 ==

== ENCOUNTER → 2023-06-22 | Outpatient (CLI) | payer MEDICARE, OTHER ==
[~2023-06-22] MED LIST changes: -ATO40T PO; +ATOR-507 PO; +IMIP25TA12 PO; -[UNRECOGNIZED DRUG - CODE] PO
== END | disposition home or self-care (01) ==
LOC: Rad HDHVI 14:59
PROVIDERS: ATTEND Internal Medicine Cardiovascular Disease
DX: I10 Essential (primary) hypertension (principal); R06.02 Shortness of breath
CPT/HCPCS: 93306

== ENCOUNTER → 2023-11-09 | Outpatient (CLI) | payer MEDICARE, OTHER ==
[~2023-11-09] VITALS: Ht 175.3 cm; Wt 76.7 kg
[~2023-11-09] MED LIST changes: +ADENOSINE 64 MG in GIVE UN-DILUTED 0 ML IV ONE; +ADENOSINE 90 MG/30 ML INJ IV ONE
== END | disposition home or self-care (01) ==
LOC: Rad HDHVI 13:02
PROVIDERS: ATTEND Internal Medicine Cardiovascular Disease
DX: I25.5 Ischemic cardiomyopathy (principal); I11.0 Hypertensive heart disease with heart failure; I50.43 Acute on chronic combined systolic (congestive) and diastolic (congestive) heart failure; I25.10 Atherosclerotic heart disease of native coronary artery without angina pectoris; I47.20 Ventricular tachycardia, unspecified; I49.8 Other specified cardiac arrhythmias; E78.5 Hyperlipidemia, unspecified
CPT/HCPCS: 78452; 93005; 96374; A9500; J0153; 96375

== ENCOUNTER 2024-02-08 06:41 | Inpatient (IN) | payer MEDICARE, OTHER ==
[~2024-02-08] VITALS: Ht 175.3 cm; Wt 80.5 kg
[~2024-02-08 06:41] MED LIST changes: -ADENOSINE 64 MG in GIVE UN-DILUTED 0 ML IV ONE; -ADENOSINE 90 MG/30 ML INJ IV ONE
--- NOTE | 2024-02-08 07:07 | ED.PDOC ---
History of Present Illness HPI Comments 83 y/o M is BIBA for c/o generalized weakness, cough, congestion, and chills for the past 4x days, today. Per EMS report, /caregiver called, due to patient getting progressively worse and her no longer being able to care for or assist him to get around. ON scene, patient was found with hypotensive, with a blood pressure of 85/40, with all remaining vitals stable. En route, he was given 300ml NS en route, with blood pressure improving to 90/60. Patient has reported Hx of CAD, HTN, PTCA, AFIB AFIB on eliquis, and "brain hydrotropy w/speech impediment." Patient denies having any chest pain, shortness of breath, fever, nausea, vomiting, or other associated symptoms or modifiers at this time. Chief Complaint: Flu like Time Seen by MD: 06:50 Primary Care Provider: RENEE Castellanos Notes: Nurses Notes, Fretted Instrument Inspector Notes, Medications, Allergies Allergies: Coded Allergies: NO KNOWN ALLERGIES (Unverified , 11/05/21) Home Meds Active Scripts Pantoprazole Sodium Sesquihydr (Protonix) 40 Mg Tab, 40 MG PO DAILY, #30 TAB 1 Refill Prov:LIZETTE BOSS MD 11/07/21 Atorvastatin Calcium (Lipitor) 40 Mg Tab, 1 TAB PO QPM, #90 TAB 3 Refills Prov:RENY OLGUIN MD 04/18/21 Metoprolol Tartrate (Metoprolol Tartrate) 25 Mg Tab, 25 MG PO BID, #180 TAB Prov:RENY OLGUIN MD 04/18/21 Clopidogrel Bisulfate (Plavix) 75 Mg Tab, 1 TAB PO DAILY, #90 TAB 1 Refill Prov:RENY OLGUIN MD 04/18/21 Imipramine Hcl (Tofranil) 25 Mg Tb, 75 MG PO HS, #30 TAB Prov:ALDEN ESPOSITO 04/17/21 Tamsulosin HCl (Tamsulosin Hydrochloride) 0.4 Mg Cap, 0.4 MG PO BID for PROSTATE, #30 CAP 30 MIN PRIOR TO SAME MEALS EVERYDAY Prov:ALDEN ESPOSITO 04/17/21 Reported Medications Valsartan (Valsartan) 160 Mg Tab, 160 MG PO DAILY, TAB 04/17/21 Information Source: Patient, Emergency Med Personnel Mode of Arrival: EMS Severity: Moderate Timing: Days Duration: Since onset Prehospital treatment: 12 Lead EKG, Field Test Engineer, IVF Past Medical History PAST MEDICAL HISTORY: AFIB, CAD, GERD, HTN Surgical History: PTCA Family History Family History: Reviewed,noncontributory to illness Social History Smoker: Non-Smoker Alcohol: Denies ETOH Use Drugs: Denies Drug Use Lives In: Home Constitutional: reports: chills EENTM: reports: nose congestion Respiratory: reports: cough, shortness of breath Neurological: reports: weakness All Other Systems: Reviewed and Negative (negative unless otherwise stated above or in HPI) Physical Exam General Appearance: No Apparent Distress, Normal HEENT: Normal ENT Inspection, Pharynx Normal, TMs Normal Neck: Full Range of Motion, Non-Tender, Normal, Normal Inspection Respiratory: Chest Non-Tender, Lungs Clear, No Accessory Muscle Use, No Respiratory Distress, Normal Breath Sounds Cardiovascular: No Edema, No JVD, No Murmur, No Gallop, Normal Peripheral Pulses, Regular Rate/Rhythm Breast Exam: Deferred Gastrointestinal: No Organomegaly, Non Tender, No Pulsatile Mass, Normal Bowel Sounds, Soft Genitalia: Deferred Pelvic: Deferred Rectal: Deferred Extremities: No calf tenderness, Normal capillary refill, Normal inspection, No rmal range of motion, Non-tender, No pedal edema Neurologic: Alert, dealer account manager II-XII nml as Tested, No Motor Deficits, Normal Affect, Normal Mood, No Sensory Deficits Cerebellar Function: NOT DONE Reflexes: NOT DONE Skin: Dry, Normal Color, Warm Lymphatic: NOT DONE Was a procedure done? Was a procedure done?: No Differential Dx Considerations may include: viral syndrome, URI, Covid19, bronchitis, PNA X-Ray, Labs, Meds, VS Vital Signs Date Time Temp Pulse Resp B/P (MAP) Pulse Ox O2 Delivery O2 Flow Rate FiO2 02/08/24 11:36 73 106/60 02/08/24 10:36 128 105/55 02/08/24 10:34 105/55 02/08/24 10:00 118 20 105/55 (72) 95 02/08/24 08:55 82 02/08/24 08:00 90 20 103/43 (63) 96 02/08/24 07:45 85 20 97 Room Air* 0 21 02/08/24 07:30 98.5 85 20 103/43 (63) 97 98.5 02/08/24 06:51 99.3 88 20 85/41 (56) 98 Lab Test 02/08/24 10:00 02/08/24 08:15 02/08/24 08:00 02/08/24 07:08 Range/Units Troponin I High Sensitivity 72 *H 68 *H 69 *H </=54 ng/L Influenza Type A Antigen Negative Negative Influenza Type B Antigen Negative Negative SARS-CoV-2 Antigen (Rapid) Negative NEGATIVE White Blood Count 6.6 4.4-10.8 10^3/uL Red Blood Count 4.35 L 4.5-5.90 10^6/uL Hemoglobin 14.1 13.5-17.5 g/dL Hematocrit 41.5 41.0-53.0 % Mean Corpuscular Volume 95.4 80.0-100.0 fL Mean Corpuscular Hemoglobin 32.4 H 28.0-32.0 pg Mean Corpuscular Hemoglobin Concent 33.9 32.0-36.0 g/dL Red Cell Distribution Width 13.2 11.8-14.3 % Platelet Count 159 140-450 10^3/uL Mean Platelet Volume 7.8 6.9-10.8 fL Neutrophils (%) (Auto) 83.0 H 37.0-80.0 % Lymphocytes (%) (Auto) 8.3 L 10.0-50.0 % Monocytes (%) (Auto) 7.8 0.0-12.0 % Eosinophils (%) (Auto) 0.2 0.0-7.0 % Basophils (%) (Auto) 0.7 0.0-2.0 % Neutrophils # (Auto) 5.4 1.6-8.6 10 ^3/uL Lymphocytes # (Auto) 0.5 0.4-5.4 10 ^3/uL Monocytes # (Auto) 0.5 0-1.3 10 ^3/uL Eosinophils # (Auto) 0 0-0.8 10 ^3/uL Basophils # (Auto) 0 0-0.2 10 ^3/uL Nucleated Red Blood Cells 0.1 % Sodium Level 138 136-145 mmol/L Potassium Level 3.8 3.5-5.1 mmol/L Chloride Level 105 98-107 mmol/L Carbon Dioxide Level 26 20-31 mmol/L Anion Gap 7 5-15 Blood Urea Nitrogen 30 H 9-23 mg/dL Creatinine 0.97 0.700-1.30 mg/dL Glomerular Filtration Rate Calc 78 >90 mL/min BUN/Creatinine Ratio 30.9 H 10.0-20.0 Serum Glucose 107 H 74-106 mg/dL Calcium Level 9.4 8.7-10.4 mg/dL Current Medications Medications (Trade) Dose Ordered Sig/Giuliana Route Start Time Stop Time Status Last Admin Sodium Chloride 1,000 ml @ 1,000 mls/hr Q1H ONCE IV 02/08/24 07:15 02/08/24 08:14 DC 02/08/24 07:57 Aspirin 325 mg ONCE ONCE PO 02/08/24 08:15 02/08/24 08:16 DC 02/08/24 08:32 Metoprolol Tartrate (Lopressor Tablet) 25 mg ONCE ONCE PO 02/08/24 10:30 02/08/24 10:31 DC 02/08/24 10:36 Valsartan (Diovan) 160 mg ONCE ONCE PO 02/08/24 10:30 02/08/24 10:31 DC 02/08/24 10:34 [place] [address] Ph: [phone] DIAGNOSTIC IMAGING Diagnostic Imaging Report : [id number] Signed PATIENT: KEN RAWLS ACCT: [id number] UNIT: [id number] : 1940 LOC: ER ROOM / BED: / AGE / SEX: 83 / M ADM STATUS: REG ER SERVICE [id number] ORDERING PHYSICIAN: BI GARCIA MD PROCEDURE(s): CXRP - CHEST PORTABLE REASON: cough ORDER NUMBER(s): [id number], ACCESSION NUMBER(s): [id number] CHEST RADIOGRAPH Indication: cough Technique: Single frontal view of the chest was obtained COMPARISON: CHEST PORTABLE on DOS: 11/05/21, CXRP on DOS: 11/05/21, CHEST PORTABLE on DOS: 04/17/21 FINDINGS: Lines and Tubes: None Lungs: Clear Pleura: No effusion. No pneumothorax. Cardiomediastinal contours: Unremarkable Bones: Unremarkable IMPRESSION: No acute disease. ATED BY: PAVEL KIMBROUGH MD DICTATED DATE/TIME: 02/08/24 075 SIGNED BY: PAVEL KIMBROUGH MD SIGNED DATE/TIME: 02/08/24 0753 CC: Time of 1ST Reevaluation: 07:20 Reevaluation 1ST: Unchanged (Assumed care from Dr. Horton. I reviewed labs and imaging. I Recommended hospitalization. Patient agreed. Pt admitted to medicine. ) Patient Education/Counseling: Diagnosis, Treatment Family Education/Counseling: No Family Present Additional Information The following tests were ordered, and results were reviewed by me: Labs, XY Additional Information was gathered from interviewing the following independent historians: EMT I reviewed and agreed with the following test results read by other providers: X-Ray I discussed treatment and results with medical personnel and: Consultants, Family Departure 1 Departure Time of Disposition: 08:10 Impression: Primary Impression: Chest pain Additional Impression: Acute renal failure Disposition: ADMITTED INPATIENT Admit to: Tele Condition: Critical Critical Care Note Critical Care Time?: No Stability Stability form required: No Heart Score Heart Score: Heart Score Response (Comments) Value History Highly Suspicious 2 EKG N/A 0 Age >65 2 Risk Factors >3 or Hx ASHD 2 Troponin Normal limit 0 Total 6 I personally scribed for BI GARCIA MD ([email or web address]) on 02/08/24 at 07:06. Electronically submitted by Rom Birmingham ([email or web address]). I personally scribed for BI GARCIA MD ([email or web address]) on 02/08/24 at 08:15. Electronically submitted by Rom Birmingham ([email or web address]). BI GARCIA MD Feb 08, 2024 07:06 WATSON ADAMSON MD Feb 08, 2024 10:26
[2024-02-08 07:37] LABS: Basophils # (auto) 0 10 ^3/uL (0-0.2); Basophils % (auto) 0.7 % (0.0-2.0); Eosinophils # (auto) 0 10 ^3/uL (0-0.8); Eosinophils % (auto) 0.2 % (0.0-7.0); Hematocrit 41.5 % (41.0-53.0); Hemoglobin 14.1 g/dL (13.5-17.5); Lymphocytes # (auto) 0.5 10 ^3/uL (0.4-5.4); Lymphocytes % (auto) 8.3 % (10.0-50.0); Mean Corpuscular Hemoglobin 32.4 pg (28.0-32.0); Mean Corpuscular Hgb Conc. 33.9 g/dL (32.0-36.0); Mean Corpuscular Volume 95.4 fL (80.0-100.0); Monocytes # (auto) 0.5 10 ^3/uL (0-1.3); Monocytes % (auto) 7.8 % (0.0-12.0); Neutrophils # (auto) 5.4 10 ^3/uL (1.6-8.6); Nucleated Red Blood Cells % 0.1 %; Platelet Count (auto) 159 10^3/uL (140-450); Red Blood Cells 4.35 10^6/uL (4.5-5.90); Red Cell Distribution Width 13.2 % (11.8-14.3); White Blood Cell 6.6 10^3/uL (4.4-10.8)
[2024-02-08 07:38] LABS: Chloride 105 mmol/L (98-107); Potassium 3.8 mmol/L (3.5-5.1); Sodium 138 mmol/L (136-145)
[2024-02-08 07:39] LABS: Anion Gap 7 (5-15); Calcium 9.4 mg/dL (8.7-10.4); Carbon Dioxide 26 mmol/L (20-31)
[2024-02-08 07:44] LABS: BUN/Creatinine Ratio 30.9 (10.0-20.0)
[2024-02-08 07:45] VITALS: PULSE 85; RESP 20; O2SAT 97
[2024-02-08 07:50] LABS: Blood Urea Nitrogen 30 mg/dL (9-23); Glucose 107 mg/dL (74-106)
--- NOTE | 2024-02-08 07:56 | DVH ---
CHEST RADIOGRAPH Indication: cough Technique: Single frontal view of the chest was obtained COMPARISON: CHEST PORTABLE on DOS: 11/05/21, CXRP on DOS: 11/05/21, CHEST PORTABLE on DOS: 04/17/21 FINDINGS: Lines and Tubes: None Lungs: Clear Pleura: No effusion. No pneumothorax. Cardiomediastinal contours: Unremarkable Bones: Unremarkable IMPRESSION: No acute disease.
[2024-02-08] MEDS: SODIUM CHLORIDE 0.9% 1,000 ML IV ONE (07:57)
[2024-02-08] MEDS: ASPirin 325 MG TAB PO ONE (08:32)
[2024-02-08 08:50] LABS: COVID19 ANTIGEN SOFIA FIA NEGATIVE (NEGATIVE); Rapid Influenza A Negative (Negative); Rapid Influenza B Negative (Negative)
[2024-02-08] MEDS: VALSARTAN 80 MG TAB PO ONE (10:34)
[2024-02-08] MEDS: METOPROLOL TARTRATE 25 MG TAB PO ONE (10:36)
[2024-02-08] MEDS ORDERED: NITROGLYCERIN 0.4 MG SL TAB SL PRN ×2 (11:45)
[2024-02-08] MEDS ORDERED: ZOLPIDEM TARTRATE 5 MG TAB PO PRN (11:45)
[2024-02-08] MEDS ORDERED: ACETAMINOPHEN 325 MG TAB PO PRN (11:45)
[2024-02-08] MEDS ORDERED: ONDANSETRON HCL 4 MG/2 ML VIAL IV PRN (11:45)
[2024-02-08] MEDS ORDERED: MORPHINE SULFATE 4 MG/ML SYR/VIAL IV PRN (11:45)
[2024-02-08] MEDS ORDERED: MORPHINE SULFATE INJ 2 MG/ml SYRG IV PRN (11:45)
[2024-02-08] MEDS ORDERED: LORazepam 0.5 MG TAB PO PRN (11:45)
[2024-02-08] MEDS: SODIUM CHLORIDE 0.9% 1,000 ML IV SCH (12:30)
[2024-02-08] MEDS: cefTRIAXone 1GM/50ML D5W 50 ML IV ONE (12:31)
[2024-02-08] MEDS: MAALOX PLUS or MAALOX 30 ML PO ONE (12:32)
[2024-02-08] MEDS ORDERED: APIX2.5T PO (12:33)
--- NOTE | 2024-02-08 12:34 | DVHHP2 ---
History of Present Illness Reason for Visit: Flu-like symptoms: Weakness, cough, chills, congestion History of Present Illness Derrick Conti is an 83-year-old male with past medical history of CAD, hyp ertension, AFib, PTCA 5 years ago, GERD, and brain hypertrophy with speech impediment who presents to the ED today for flu-like symptoms weakness, cough, chills, congestion x4 days. Patient reports that called EMS because the patient was progressively getting worse and she was unable to care for him more assistance to get around, EMS obtain a blood pressure of 85/40. Patient reports that his was sick recently with the flu. Patient denies any fever, shortness of breath, chest pain, abdominal pain, nausea, vomiting, diarrhea, lightheadedness, and dizziness. Patient also denies any productive sputum. Cardiovascular: AFIB, CAD, HTN GI: GERD Past Medical History bowel obstruction Past Surgical History PTCA 5 years ago Family History: None Smoke: No ALCOHOL: none Drugs: None Lives: with Family Domestic Violence: Neg Review of Systems Constitutional: Yes: Chills, Weakness; No: Fever, Sweats, Malaise, Other Eyes: No: Pain, Vision change, Conjunctivae inflammation, Eyelid inflammation, Other, Redness ENT: No: Ear pain, Ear discharge, Nose pain, Nose discharge, Nose congestion, Mouth pain, Mouth swelling, Throat pain, Throat swelling, Other Respiratory: Cough, Other (congestion); No: Dry, Shortness of breath, SOB with excertion, Wheezing, Hemoptysis, Pleuritic Pain, Sputum, Wheezing Cardiovascular: No: Chest Pain, Palpitations, Orthopnea, Paroxysmal Noc. Dyspnea, Edema, Lt Headedness, Other Gastrointestinal: No: Nausea, Vomiting, Abdominal Pain, Diarrhea, Constipation, Melena, Hematochezia, Other Genitourinary: No Dysuria, No Frequency, No Incontinence, No Hematuria, No Retention, No Other Musculoskeletal: No: other, neck pain, shoulder pain, arm pain, back pain, hand pain, leg pain, foot pain Skin: No: Rash, Lesions, Jaundice, Bruising, Other Neurological: Other (WC dependent); No: Weakness, Numbness, Incoordination, Change in speech, Confusion, Seizures Other WC dependent Brain hypertrophy with speech impediment Allergies: Coded Allergies: NO KNOWN ALLERGIES (Unverified , 11/05/21) Exam Vital Signs Vital Signs Date Time Temp Pulse Resp B/P (MAP) Pulse Ox O2 Delivery O2 Flow Rate FiO2 02/08/24 11:36 73 106/60 02/08/24 10:00 20 95 02/08/24 07:45 Room Air* 0 21 02/08/24 07:30 98.5 98.5 General Appearance: Alert, Oriented X3, Cooperative, No acute distress HEENT: Atraumatic, PERRLA, EOMI, Mucous membr. moist/pink Respiratory: Clear to auscultation, Normal air movement Cardiovascular: Normal S1, Normal S2, No murmurs Abdominal: Normal bowel sounds, Soft, No tenderness, No hepatospenomegaly, No masses Extremities: No clubbing, No cyanosis, No edema, Normal pulses, No tenderness/swelling Skin: No rashes, No breakdown, No significant lesion Neuro: Normal tone, Sensation intact Psych/Mental Status: Mental status NL, Mood NL Labs/Xrays Labs Test 02/08/24 10:00 02/08/24 08:00 02/08/24 07:08 Range/Units Troponin I High Sensitivity 72 *H </=54 ng/L Influenza Type A Antigen Negative Negative Influenza Type B Antigen Negative Negative SARS-CoV-2 Antigen (Rapid) Negative NEGATIVE White Blood Count 6.6 4.4-10.8 10^3/uL Red Blood Count 4.35 L 4.5-5.90 10^6/uL Hemoglobin 14.1 13.5-17.5 g/dL Hematocrit 41.5 41.0-53.0 % Mean Corpuscular Volume 95.4 80.0-100.0 fL Mean Corpuscular Hemoglobin 32.4 H 28.0-32.0 pg Mean Corpuscular Hemoglobin Concent 33.9 32.0-36.0 g/dL Red Cell Distribution Width 13.2 11.8-14.3 % Platelet Count 159 140-450 10^3/uL Mean Platelet Volume 7.8 6.9-10.8 fL Neutrophils (%) (Auto) 83.0 H 37.0-80.0 % Lymphocytes (%) (Auto) 8.3 L 10.0-50.0 % Monocytes (%) (Auto) 7.8 0.0-12.0 % Eosinophils (%) (Auto) 0.2 0.0-7.0 % Basophils (%) (Auto) 0.7 0.0-2.0 % Neutrophils # (Auto) 5.4 1.6-8.6 10 ^3/uL Lymphocytes # (Auto) 0.5 0.4-5.4 10 ^3/uL Monocytes # (Auto) 0.5 0-1.3 10 ^3/uL Eosinophils # (Auto) 0 0-0.8 10 ^3/uL Basophils # (Auto) 0 0-0.2 10 ^3/uL Nucleated Red Blood Cells 0.1 % Sodium Level 138 136-145 mmol/L Potassium Level 3.8 3.5-5.1 mmol/L Chloride Level 105 98-107 mmol/L Carbon Dioxide Level 26 20-31 mmol/L Anion Gap 7 5-15 Blood Urea Nitrogen 30 H 9-23 mg/dL Creatinine 0.97 0.700-1.30 mg/dL Glomerular Filtration Rate Calc 78 >90 mL/min BUN/Creatinine Ratio 30.9 H 10.0-20.0 Serum Glucose 107 H 74-106 mg/dL Calcium Level 9.4 8.7-10.4 mg/dL CHEST RADIOGRAPH Indication: cough Technique: Single frontal view of the chest was obtained COMPARISON: CHEST PORTABLE on DOS: 11/05/21, CXRP on DOS: 11/05/21, CHEST PORTABLE on DOS: 04/17/21 FINDINGS: Lines and Tubes: None Lungs: Clear Pleura: No effusion. No pneumothorax. Cardiomediastinal contours: Unremarkable Bones: Unremarkable IMPRESSION: No acute disease. Assessment/Plan Assessment/Plan Assessment/Plan: NSTEMI Type 2 secondary to sepsis Leukocytosis labs trend trop ua flu neg covid neg cxr neg ekg ekg am cards cx Brain hypertrophy with speech impediment monitor CAD PTCA continue home meds HTN continue home meds AFib continue home meds GERD continue home meds WC dependent d/t instability monitor FEN/PPX Diet IVF DVT ppx therapeutic lovenox PUD ppx continue home meds protonix Discussed plan of care with patient and nurse Admit to tele Home medications reconciled Plan discussed with: Patient My Orders Orders - MARIANNE CASTAÑEDA Procedure Category Date Status Time Admit ADMIT 02/08/24 Verified 11:37 Code Status CODE 02/08/24 Verified 11:37 Vital Signs ERIC 02/08/24 Verified 11:37 Coating Technician [facility] 02/08/24 Verified 11:37 Cardiac DIET 02/08/24 Verified Diet-2gna,Lofat,Lochol Lunch 0.9%Ns 1000 Ml PHA 02/08/24 Verified 11:45 Morphine Sulfate PHA 02/08/24 Verified Injection 11:45 Acetaminophen Tablet PHA 02/08/24 Verified (Tylenol Tablet) 11:45 Zolpidem Tartrate PHA 02/08/24 Verified (Ambien) 11:45 Lorazepam Tablet PHA 02/08/24 Verified (Ativan Tablet) 11:45 Docusate Sodium PHA 02/09/24 Verified Capsule (Colace 10:00 Complete Blood Count LAB 02/09/24 Verified 04:00 Comprehensive LAB 02/09/24 Verified Metabolic Panel 04:00 Nitroglycerin PHA 02/08/24 Verified Sublingual (Ntrostat 11:45 Ondansetron Hcl PHA 02/08/24 Verified (Zofran) 11:45 Electrocardigram EKG 02/09/24 Verified 04:00 Alum & Mag PHA 02/08/24 Verified Hydrox-Simethicone 11:45 Troponin-I Hs LAB 02/09/24 Verified 04:00 Nitroglycerin PHA 02/08/24 Verified Sublingual (Ntrostat 11:45 Morphine Sulfate PHA 02/08/24 Verified Injection 11:45 Notify Of Changes [facility] 02/08/24 Verified From Base 11:37 Partnership Marketing Manager For [facility] 02/08/24 Verified 24 Hours 11:37 Emergency Dysrhythmia [facility] 02/08/24 Verified Protocol 11:37 Rhythm Strips Once [facility] 02/08/24 Verified Every Shift 11:37 Oxygen By Nasal RT 02/08/24 Verified Cannula 11:37 Ceftriaxone Ivpb PHA 02/09/24 Verified Rocephin 09:00 Ceftriaxone Ivpb PHA 02/08/24 Verified Rocephin 11:45 Date of Service: Feb 08, 2024 Billing Provider: MARIANNE CASTAÑEDA Common Visit Codes: [id number] INP/OBS CARE (MOD) MARIANNE CASTAÑEDA Feb 08, 2024 12:34
[2024-02-08 12:54] LABS: Urine Bacteria None Seen /hpf (None Seen)
[2024-02-08 13:05] LABS: Urine Blood Negative /uL (Negative); Urine Clarity Clear (Clear); Urine Color Yellow (Yellow); Urine Mucus FEW (None Seen); Urine Protein, UAD TRACE (Negative); Urine Urobilinogen Normal (Negative); Urine WBC 2 /hpf (0 - 3); Urine pH 5.5 (5.0-9.0)
--- NOTE | 2024-02-08 14:12 | DVHPN2 ---
Progress Note - Dictate Date Seen: Feb 08, 2024 Medical Necessity Reason Pt with a Central, PICC or Fol: No Subjective PT WITH SOB FEVER NOW WITH PNA PMH: ORGANIC HD AFIB HTN CAD S/P PTCA STENT CVA vital signs Vital Sign Date Time Temp Pulse Resp B/P (MAP) Pulse Ox O2 Delivery O2 Flow Rate FiO2 02/08/24 12:00 71 19 97/51 (66) 95 02/08/24 07:45 Room Air* 0 21 02/08/24 07:30 98.5 98.5 medications Current Medications Medications Dose Ordered Sig/Giuliana Route Start Time Stop Time Status Last Admin Dose Admin Sodium Chloride 1,000 ml @ 100 mls/hr Q10H IV 02/08/24 11:45 02/08/24 12:30 100 MLS/HR Morphine Sulfate 2 mg Q30MP PRN IV 02/08/24 11:45 Acetaminophen 650 mg Q6HP PRN PO 02/08/24 11:45 Zolpidem Tartrate 5 mg QHSP PRN PO 02/08/24 11:45 Lorazepam 0.5 mg Q6HP PRN PO 02/08/24 11:45 Docusate Sodium 100 mg DAILY PO 02/09/24 10:00 Nitroglycerin 0.4 mg Q5MINP PRN SL 02/08/24 11:45 Ondansetron HCl 4 mg Q4HP PRN IV 02/08/24 11:45 Ceftriaxone Sodium 50 ml @ 100 mls/hr DAILY@09 IV 02/09/24 09:00 Aspirin 81 mg DAILY PO 02/09/24 10:00 Metoprolol Tartrate 25 mg BID PO 02/08/24 22:00 Pantoprazole Sodium 40 mg DAILY PO 02/09/24 10:00 Tamsulosin HCl 0.4 mg BID PO 02/08/24 22:00 Patient Own Medication 1 tab QPM PO 02/08/24 18:00 UNV Patient Own Medication 75 mg HS PO 02/08/24 22:00 UNV Patient Own Medication 160 mg DAILY PO 02/09/24 10:00 UNV Clopidogrel Bisulfate 75 mg DAILY PO 02/09/24 10:00 Enoxaparin Sodium 80 mg Q12HR SC 02/08/24 22:00 Valsartan 160 mg DAILY PO 02/09/24 10:00 Imipramine HCl 75 mg HS PO 02/08/24 22:00 Cancel Atorvastatin Calcium 40 mg HS PO 02/08/24 22:00 Patient Own Medication 75 mg HS PO 02/08/24 22:00 laboratory and microbiology Laboratory Tests 02/08/24 07:08 Test 02/08/24 07:08 Range/Units Serum Glucose 107 H 74-106 mg/dL Problem List SOB FEVER NOW WITH PNA PMH: ORGANIC HD AFIB HTN CAD S/P PTCA STENT CVA Assessment/Plan VOLUME DEPLETION ABX ECHO EF >55% [facility] 2021 MILD DISEASE Plan discussed with: Patient BIJU SANTIAGO MD Feb 08, 2024 14:12
[2024-02-08] MEDS ORDERED: PATIENTS OWN MEDICATION (Atorvastatin Calcium (Lipitor) 1 TAB) PO SCH (18:00)
[2024-02-08 19:35] VITALS: PULSE 79; RESP 21; O2SAT 93
[2024-02-08 21:07] VITALS: PULSE 69; RESP 17; O2SAT 92
[2024-02-08 21:25] VITALS: BP 121/60; PULSE 69; RESP 17; TEMP 98.8; O2SAT 92
[2024-02-08] MEDS ORDERED: IMIPRAMINE HCL PO SCH (22:00)
[2024-02-08] MEDS ORDERED: IMIPRAMINE HCL 25 MG TAB PO SCH (22:00)
[2024-02-08] MEDS: ATORVASTATIN 20 MG TAB PO SCH (22:00)
[2024-02-08] MEDS: TAMSULOSIN HYDROCHLORIDE 0.4 MG CAP PO SCH (22:00)
[2024-02-08] MEDS: METOPROLOL TARTRATE 25 MG TAB PO SCH (22:00)
[2024-02-08] MEDS: ENOXAPARIN SOD 80 MG/0.8ML SYRINGE SC SCH (22:14)
[2024-02-08] MEDS: methylPREDNISolone SOD SUCC 40 MG/ML VL IV SCH (22:14)
[2024-02-09] VITALS (8 sets, daily range): BP systolic 92–145; BP diastolic 35–66; PULSE 55–80; RESP 16–20; TEMP 94.2–99.3; O2SAT 92–95
[2024-02-09 07:04] LABS: Alanine Aminotransferase 33 U/L (7-40); Albumin 3.3 g/dL (3.2-4.8); Alkaline Phosphatase 69 U/L (46-116); Anion Gap 9 (5-15); Aspartate Aminotransferase 35 U/L (13-40); Bilirubin, Total 0.5 mg/dL (0.2-1.0); Carbon Dioxide 22 mmol/L (20-31); Sodium 141 mmol/L (136-145)
[2024-02-09 07:06] LABS: Blood Urea Nitrogen 30 mg/dL (9-23); Calcium 8.4 mg/dL (8.7-10.4); Chloride 110 mmol/L (98-107); Glucose 109 mg/dL (74-106); Total Protein 4.7 g/dL (5.7-8.2)
[2024-02-09 07:12] LABS: Basophils # (auto) 0 10 ^3/uL (0-0.2); Basophils % (auto) 0.2 % (0.0-2.0); Eosinophils # (auto) 0 10 ^3/uL (0-0.8); Hematocrit 34.7 % (41.0-53.0); Lymphocytes # (auto) 0.7 10 ^3/uL (0.4-5.4); Mean Corpuscular Hemoglobin 32.7 pg (28.0-32.0); Mean Corpuscular Hgb Conc. 34.7 g/dL (32.0-36.0); Mean Corpuscular Volume 94.2 fL (80.0-100.0); Monocytes # (auto) 0.1 10 ^3/uL (0-1.3); Neutrophils # (auto) 3.6 10 ^3/uL (1.6-8.6); Neutrophils % (auto) 81.8 % (37.0-80.0); Nucleated Red Blood Cells % 0.1 %; Platelet Count (auto) 119 10^3/uL (140-450); Red Blood Cells 3.68 10^6/uL (4.5-5.90); Red Cell Distribution Width 12.9 % (11.8-14.3); White Blood Cell 4.5 10^3/uL (4.4-10.8)
[2024-02-09] MEDS: cefTRIAXone 1GM/50ML D5W 50 ML IV SCH (09:07)
[2024-02-09] MEDS ORDERED: VALSARTAN 160 MG PO SCH (10:00)
[2024-02-09] MEDS: VALSARTAN 80 MG TAB PO SCH (10:00)
[2024-02-09] MEDS: PANTOPRAZOLE 40 MG TAB PO SCH (10:51)
[2024-02-09] MEDS: DOCUSATE SOD 100 MG CAP PO SCH (10:51)
[2024-02-09] MEDS: ASPirin-EC 81 mg tab PO SCH (10:51)
[2024-02-09] MEDS: CLOPIDOGREL BISULFATE 75 MG TAB PO SCH (10:51)
--- NOTE | 2024-02-09 12:35 | DVHPN2 ---
Progress Note - Dictate Medical Necessity Reason Pt with a Central, PICC or Fol: No Subjective PT WITH SOB FEVER NOW WITH PNA PMH: ORGANIC HD AFIB HTN CAD S/P PTCA STENT CVA vital signs Vital Sign Date Time Temp Pulse Resp B/P (MAP) Pulse Ox O2 Delivery O2 Flow Rate FiO2 02/09/24 10:00 115/55 02/09/24 10:00 61 02/09/24 09:00 97.6 18 94 97.6 02/09/24 08:00 Room Air* 0 21 Total Intake and Output 02/08/24 02/08/24 02/09/24 15:00 23:00 07:00 Intake Total 1250 ml 300 ml 600 ml Balance 1250 ml 300 ml 600 ml medications Current Medications Medications Dose Ordered Sig/Giuliana Route Start Time Stop Time Status Last Admin Dose Admin Sodium Chloride 1,000 ml @ 100 mls/hr Q10H IV 02/08/24 11:45 02/09/24 08:22 100 MLS/HR Morphine Sulfate 2 mg Q30MP PRN IV 02/08/24 11:45 Acetaminophen 650 mg Q6HP PRN PO 02/08/24 11:45 Zolpidem Tartrate 5 mg QHSP PRN PO 02/08/24 11:45 Lorazepam 0.5 mg Q6HP PRN PO 02/08/24 11:45 Docusate Sodium 100 mg DAILY PO 02/09/24 10:00 02/09/24 10:51 100 MG Nitroglycerin 0.4 mg Q5MINP PRN SL 02/08/24 11:45 Ondansetron HCl 4 mg Q4HP PRN IV 02/08/24 11:45 Ceftriaxone Sodium 50 ml @ 100 mls/hr DAILY@09 IV 02/09/24 09:00 02/09/24 09:07 100 MLS/HR Aspirin 81 mg DAILY PO 02/09/24 10:00 02/09/24 10:51 81 MG Metoprolol Tartrate 25 mg BID PO 02/08/24 22:00 Pantoprazole Sodium 40 mg DAILY PO 02/09/24 10:00 02/09/24 10:51 40 MG Tamsulosin HCl 0.4 mg BID PO 02/08/24 22:00 02/09/24 10:51 0.4 MG Patient Own Medication 1 tab QPM PO 02/08/24 18:00 UNV Patient Own Medication 75 mg HS PO 02/08/24 22:00 UNV Patient Own Medication 160 mg DAILY PO 02/09/24 10:00 UNV Clopidogrel Bisulfate 75 mg DAILY PO 02/09/24 10:00 02/09/24 10:51 75 MG Enoxaparin Sodium 80 mg Q12HR SC 02/08/24 22:00 02/08/24 22:14 80 MG Valsartan 160 mg DAILY PO 02/09/24 10:00 Imipramine HCl 75 mg HS PO 02/08/24 22:00 Cancel Atorvastatin Calcium 40 mg HS PO 02/08/24 22:00 Patient Own Medication 75 mg HS PO 02/08/24 22:00 Methylprednisolone Sodium Succinate 40 mg BID IV 02/08/24 22:00 02/09/24 10:52 40 MG laboratory and microbiology Laboratory Tests 02/09/24 06:00 Test 02/09/24 06:00 Range/Units Serum Glucose 109 H 74-106 mg/dL Problem List SOB FEVER NOW WITH PNA PMH: ORGANIC HD AFIB HTN CAD S/P PTCA STENT CVA Assessment/Plan VOLUME DEPLETION ABX ECHO EF >55% [facility] 2021 MILD DISEASE PT WITH SS COMPLEX CONSISTENT WITH INFECTION STARTED STEROID/ ABX Plan discussed with: Patient Critical Care Time(min): 35 BIJU SANTIAGO MD Feb 09, 2024 12:35
--- NOTE | 2024-02-09 20:46 | DVHPNRES ---
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 Patient is wheelchair dependent because of gait and coordination typical of cerebellar ataxia, is able to eat solid food but has difficulty swallowing water, per he has choked many times. Patient is able to do his daily activities, manages his own finances. patient is Seen and examined at bedside. Patient has slurred speech, which according to the is chronic. He denied any complaints of cough and shortness of breath, burning micturition. ROS Constitutional: Generalized weakness No: Fever, Chills, Sweats, Weakness, Malaise, Other Eyes: No: Pain, Vision change, Conjunctivae inflammation, Eyelid inflammation, Other, Redness ENT: No: Ear pain, Ear discharge, Nose pain, Nose discharge, Nose congestion, Mouth pain, Mouth swelling, Throat pain, Throat swelling, Other Respiratory: No: Cough, Dry, Shortness of breath, SOB with exertion, Wheezing, Hemoptysis, Pleuritic Pain, Sputum, Wheezing, Other Cardiovascular: No: Chest Pain, Palpitations, Orthopnea, Paroxysmal Noc. Dyspnea, Edema, Lt Headedness, Other Gastrointestinal: No: Nausea, Vomiting, Abdominal Pain, Diarrhea, Constipation, Melena, Hematochezia, Other Musculoskeletal: No: other, neck pain, shoulder pain, arm pain, back pain, hand pain, leg pain, foot pain Neurological:; slurred speech, coordination abnormality, gait abnormality No: Weakness, Numbness, Incoordination, Change in speech, Confusion, Seizures Objective vital signs Vital Sign Date Time Temp Pulse Resp B/P (MAP) Pulse Ox O2 Delivery O2 Flow Rate FiO2 02/09/24 16:39 98.2 58 20 112/35 (60) 94 98.2 02/09/24 08:00 Room Air* 0 21 Total Intake and Output 02/08/24 02/08/24 02/09/24 14:59 22:59 06:59 Intake Total 1250 ml 300 ml 600 ml Balance 1250 ml 300 ml 600 ml medications Current Medications Medications Dose Ordered Sig/Giuliana Route Start Time Stop Time Status Last Admin Dose Admin Sodium Chloride 1,000 ml @ 100 mls/hr Q10H IV 02/08/24 11:45 02/09/24 17:47 100 MLS/HR Morphine Sulfate 2 mg Q30MP PRN IV 02/08/24 11:45 Acetaminophen 650 mg Q6HP PRN PO 02/08/24 11:45 Zolpidem Tartrate 5 mg QHSP PRN PO 02/08/24 11:45 Lorazepam 0.5 mg Q6HP PRN PO 02/08/24 11:45 Docusate Sodium 100 mg DAILY PO 02/09/24 10:00 02/09/24 10:51 100 MG Nitroglycerin 0.4 mg Q5MINP PRN SL 02/08/24 11:45 Ondansetron HCl 4 mg Q4HP PRN IV 02/08/24 11:45 Ceftriaxone Sodium 50 ml @ 100 mls/hr DAILY@09 IV 02/09/24 09:00 02/09/24 09:07 100 MLS/HR Aspirin 81 mg DAILY PO 02/09/24 10:00 02/09/24 10:51 81 MG Metoprolol Tartrate 25 mg BID PO 02/08/24 22:00 Pantoprazole Sodium 40 mg DAILY PO 02/09/24 10:00 02/09/24 10:51 40 MG Tamsulosin HCl 0.4 mg BID PO 02/08/24 22:00 02/09/24 10:51 0.4 MG Patient Own Medication 1 tab QPM PO 02/08/24 18:00 UNV Patient Own Medication 75 mg HS PO 02/08/24 22:00 UNV Patient Own Medication 160 mg DAILY PO 02/09/24 10:00 UNV Clopidogrel Bisulfate 75 mg DAILY PO 02/09/24 10:00 02/09/24 10:51 75 MG Enoxaparin Sodium 80 mg Q12HR SC 02/08/24 22:00 02/08/24 22:14 80 MG Valsartan 160 mg DAILY PO 02/09/24 10:00 Imipramine HCl 75 mg HS PO 02/08/24 22:00 Cancel Atorvastatin Calcium 40 mg HS PO 02/08/24 22:00 Patient Own Medication 75 mg HS PO 02/08/24 22:00 Methylprednisolone Sodium Succinate 40 mg BID IV 02/08/24 22:00 02/09/24 10:52 40 MG Examination Examination General Appearance: Alert, Oriented X3, Cooperative, No acute distress HEENT: EOMI Respiratory: Clear to auscultation, Normal air movement Cardiovascular: Regular rate, Normal S1, Normal S2 Abdominal: Normal bowel sounds Extremities: No cyanosis, No edema, Normal pulses, No tenderness/swelling Skin: No rashes, No breakdown Neuro: no motor/sensory deficit, no gross cranial nerve deficit, laboratory and microbiology Laboratory Tests 02/09/24 06:00 Test 02/09/24 06:00 Range/Units Serum Glucose 109 H 74-106 mg/dL Labs and/or images reviewed: Labs reviewed by me, Image(s) reviewed by me Problem List/Assessment/Plan Problem List/Assessment/Plan Assessment/plan # generalized weakness likely due to hypotension -IV fluids -covid, flu -physical therapy evaluation -IV ceftriaxone started for possible sepsis -MRSA screen # hypotension likely due to dehydration due to inadequate intake of fluids -IV fluids -orthostatic vitals -urine routine -CXR #Elevated Troponins, likely NSTEMI type 2 -likely due to Afib, ?sepsis # Atrial fibrillation, persistent -therapeutic Lovenox, will switch to home meds, eliquis -metoprolol tartrate. 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 DNR DNI Case discussion with Dr Arroyo Plan discussed with: Patient, Other My Orders My Orders Orders - TIA SHARIF RESIDENT Procedure Category Date Status Time Pt Request For Service PT 02/09/24 Logged 14:25 Cardiac DIET 02/09/24 Transmitted Diet-2gna,Lofat,Lochol Dinner Regular Diet DIET 02/09/24 Transmitted Dinner Date of Service: Feb 09, 2024 Billing Provider: SANDEEP ARROYO MD Common Visit Codes: [id number] INP/OBS CARE(HIGH) Secondary Visit Codes: [id number] CARE PLAN 30 MINUTES Coding Comment Comment Attending Attestation I saw and evaluated the patient. I reviewed the residents note and agree with findings and plan as documented in the residents note except as documented below. geriatric assessment: independent bathing, toilet, feeding, dressing. dependent shopping, cooking, finances. 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 code status DNR DNI medical decision maker goals of care prioritizing comfort TIA SHARIF RESIDENT Feb 09, 2024 20:46 SANDEEP ARROYO MD Feb 09, 2024 21:55
[2024-02-09] MEDS: SODIUM CHLORIDE 0.9% 1,000 ML IV SCH (21:38)
[2024-02-10 01:00] VITALS: BP 129/65; PULSE 49; RESP 18; TEMP 97.4; O2SAT 92
[2024-02-10 05:00] VITALS: BP 124/75; PULSE 47; RESP 17; TEMP 97.7; O2SAT 95
[2024-02-10 07:02] LABS: Basophils # (auto) 0 10 ^3/uL (0-0.2); Basophils % (auto) 0.1 % (0.0-2.0); Eosinophils # (auto) 0 10 ^3/uL (0-0.8); Hematocrit 35.8 % (41.0-53.0); Hemoglobin 12.5 g/dL (13.5-17.5); Lymphocytes # (auto) 0.9 10 ^3/uL (0.4-5.4); Mean Corpuscular Hgb Conc. 34.9 g/dL (32.0-36.0); Mean Corpuscular Volume 94.8 fL (80.0-100.0); Monocytes # (auto) 0.6 10 ^3/uL (0-1.3); Monocytes % (auto) 7.9 % (0.0-12.0); Neutrophils # (auto) 5.8 10 ^3/uL (1.6-8.6); Nucleated Red Blood Cells % 0.1 %; Platelet Count (auto) 141 10^3/uL (140-450); Red Blood Cells 3.78 10^6/uL (4.5-5.90); Red Cell Distribution Width 13.1 % (11.8-14.3); White Blood Cell 7.2 10^3/uL (4.4-10.8)
[2024-02-10 07:03] LABS: Anion Gap 13 (5-15); Carbon Dioxide 21 mmol/L (20-31); Potassium 4.2 mmol/L (3.5-5.1); Sodium 145 mmol/L (136-145)
[2024-02-10 07:04] LABS: Calcium 9.2 mg/dL (8.7-10.4)
[2024-02-10 07:05] LABS: Chloride 111 mmol/L (98-107)
[2024-02-10 07:09] LABS: Magnesium 2.2 mg/dL (1.6-2.6)
[2024-02-10 07:11] LABS: Phosphorus 2.9 mg/dL (2.4-5.1)
[2024-02-10 07:18] LABS: Glucose 138 mg/dL (74-106)
[2024-02-10 07:31] LABS: BUN/Creatinine Ratio 36.6 (10.0-20.0)
[2024-02-10 07:41] LABS: Blood Urea Nitrogen 26 mg/dL (9-23)
[2024-02-10 08:00] VITALS: PULSE 54
[2024-02-10 09:00] VITALS: BP 135/61; PULSE 48; RESP 17; TEMP 97.7; O2SAT 95
[2024-02-10 13:00] VITALS: BP 128/59; PULSE 47; RESP 16; TEMP 97.9; O2SAT 93
--- NOTE | 2024-02-10 13:20 | DVHDS2 ---
Discharge Summary Date of Admission Feb 08, 2024 at 11:37 Date of Discharge: Feb 10, 2024 Admitting Diagnosis SEVERE VOLUME DEPLETION Labs/Diagnostic Data: Laboratory Results Test 02/10/24 05:44 02/09/24 06:00 02/08/24 12:47 02/08/24 08:00 White Blood Count 7.2 10^3/uL (4.4-10.8) Red Blood Count 3.78 10^6/uL (4.5-5.90) Hemoglobin 12.5 g/dL (13.5-17.5) Hematocrit 35.8 % (41.0-53.0) Mean Corpuscular Volume 94.8 fL (80.0-100.0) Mean Corpuscular Hemoglobin 33.0 pg (28.0-32.0) Mean Corpuscular Hemoglobin Concent 34.9 g/dL (32.0-36.0) Red Cell Distribution Width 13.1 % (11.8-14.3) Platelet Count 141 10^3/uL (140-450) Mean Platelet Volume 8.3 fL (6.9-10.8) Neutrophils (%) (Auto) 80.0 % (37.0-80.0) Lymphocytes (%) (Auto) 12.0 % (10.0-50.0) Monocytes (%) (Auto) 7.9 % (0.0-12.0) Eosinophils (%) (Auto) 0.0 % (0.0-7.0) Basophils (%) (Auto) 0.1 % (0.0-2.0) Neutrophils # (Auto) 5.8 10 ^3/uL (1.6-8.6) Lymphocytes # (Auto) 0.9 10 ^3/uL (0.4-5.4) Monocytes # (Auto) 0.6 10 ^3/uL (0-1.3) Eosinophils # (Auto) 0 10 ^3/uL (0-0.8) Basophils # (Auto) 0 10 ^3/uL (0-0.2) Nucleated Red Blood Cells 0.1 % Sodium Level 145 mmol/L (136-145) Potassium Level 4.2 mmol/L (3.5-5.1) Chloride Level 111 mmol/L (98-107) Carbon Dioxide Level 21 mmol/L (20-31) Anion Gap 13 (5-15) Blood Urea Nitrogen 26 mg/dL (9-23) Creatinine 0.71 mg/dL (0.700-1.30) Glomerular Filtration Rate Calc 92 mL/min (>90) BUN/Creatinine Ratio 36.6 (10.0-20.0) Serum Glucose 138 mg/dL (74-106) Calcium Level 9.2 mg/dL (8.7-10.4) Phosphorus Level 2.9 mg/dL (2.4-5.1) Magnesium Level 2.2 mg/dL (1.6-2.6) Vitamin B12 Level 1264 pg/mL (211-911) Total Bilirubin 0.5 mg/dL (0.2-1.0) Aspartate Amino Transferase (AST) 35 U/L (13-40) Alanine Aminotransferase (ALT) 33 U/L (7-40) Alkaline Phosphatase 69 U/L (46-116) Troponin I High Sensitivity 37 ng/L (</=54) Total Protein 4.7 g/dL (5.7-8.2) Albumin 3.3 g/dL (3.2-4.8) Urine Color Yellow (Yellow) Urine Clarity Clear (Clear) Urine pH 5.5 (5.0-9.0) Urine Specific [place] 1.030 (1.001-1.035) Urine Protein Trace (Negative) Urine Ketones Negative (Negative) Urine Blood Negative /uL (Negative) Urine Nitrite Negative (Negative) Urine Bilirubin Negative (Negative) Urine Urobilinogen Normal mg/dL (Negative) Urine Leukocyte Esterase Negative /uL (Negative) Urine RBC 5 /hpf (0 - 3) Urine WBC 2 /hpf (0 - 3) Urine Squamous Epithelial Cells Few /hpf (<5) Urine Bacteria None seen /hpf (None Seen) Urine Mucus Few (None Seen) Urine Glucose Normal mg/dL (Normal) Influenza Type A Antigen Negative (Negative) Influenza Type B Antigen Negative (Negative) SARS-CoV-2 Antigen (Rapid) Negative (NEGATIVE) Other Laboratory Tests 02/10/24 05:44 Brief Hx & Hospital Course: SOB FEVER NOW WITH PNA PMH: ORGANIC HD AFIB HTN CAD S/P PTCA STENT CVA VOLUME DEPLETION ABX ECHO EF >55% [facility] 2021 MILD DISEASE PT WITH SS COMPLEX CONSISTENT WITH INFECTION STARTED STEROID/ ABX Condition at Discharge: Fair Final Diagnosis/Problems List ORGANIC HD AFIB HTN CAD S/P PTCA STENT CVA VOLUME DEPLETION CEREBELLAR DEGENERATION Discharge Disposition: Home Discharge Instruct/Medications Diet: Cardiac 2g Na,low cholest Activity: Light activity Follow Up/Referral: 2 WEEKS Medications: DOXYYCILLIN 100 MG PO BID PRED 20 MG PO BID Discharge Statement: "Patient was advised to return to the ER or call 911 if any headaches, dizziness, shortness of breath, chest pain, abdominal pain, bleeding, fevers, or worsening of medical condition. Patient was counseled about treatment plan, medications, possible side effects, patientverbalized understanding. All questions were answered to the best of my ability. This discharge took greater then 30 minutes in planning, reviewing documentation, counseling the patient, and discussing with other team members." ASSESSMENT ASSESSMENT Assessment BIJU SANTIAGO MD Feb 10, 2024 13:20
[2024-02-10 14:52] VITALS: BP 121/67; PULSE 48; RESP 17; TEMP 97.8; O2SAT 99
--- NOTE | 2024-02-16 10:30 | ECG ---
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
--- NOTE | 2024-02-16 10:30 | ECG ---
[facility] Test Date: 2024-02-10 Test Time: 00:25:22 Pat Name: KEN RAWLS Department: Room: 0294T A Gender: M Crisis Intervention Counselor: jasen MURGUIA : 1940 Requested By: BIJU SANTIAGO Order Number: [id number] Reading MD: Salena Moon Measurements Intervals [place] Rate: 48 P: 75 [place]: 293 QRS: 87 QRSD: 104 T: 60 QT: 500 QTc: 447 Interpretive Statements Sinus bradycardia Prolonged [place] interval Anteroseptal infarct, age indeterminate Electronically Signed On 02-16-2024 13:32:39 PST by Salena Moon Please click the below link to view image of tracing.
== END 2024-02-10 15:50 | disposition home or self-care (01) | DRG 193 ==
LOC: EDBD 06:41 → ER 06:41 → TELE 11:37 → TELE-WESTW 21:02
PROVIDERS: ADMIT Student in an Organized Health Care Education/Training Program; ATTEND Student in an Organized Health Care Education/Training Program
DX: J18.9 Pneumonia, unspecified organism (principal); I21.A1 Myocardial infarction type 2; I48.19 Other persistent atrial fibrillation; G11.9 Hereditary ataxia, unspecified; Z20.822 Contact with and (suspected) exposure to COVID-19; E86.9 Volume depletion, unspecified; I10 Essential (primary) hypertension; I25.10 Atherosclerotic heart disease of native coronary artery without angina pectoris; K21.9 Gastro-esophageal reflux disease without esophagitis; Z66 Do not resuscitate; G31.9 Degenerative disease of nervous system, unspecified; Z98.61 Coronary angioplasty status; Z79.01 Long term (current) use of anticoagulants; Z86.73 Personal history of transient ischemic attack (TIA), and cerebral infarction without residual deficits; I48.91 Unspecified atrial fibrillation
CPT/HCPCS: 36415; 71045; 80048; 80053; 81001; 82607; 83735; 84100; 84484; 85025; 87081; 87426; 87804; 92610; 96365; 96375; 97163; G0378

== ENCOUNTER 2024-08-08 10:58 | Outpatient (CLI) | payer MEDICARE, OTHER ==
[~2024-08-08 10:58] MED LIST changes: -ASPI-498 OR
== END 2024-08-08 17:00 | disposition home or self-care (01) ==
LOC: Rad HDHVI 10:58
PROVIDERS: ATTEND Internal Medicine Cardiovascular Disease
DX: I10 Essential (primary) hypertension (principal)
CPT/HCPCS: 93306